=== PATIENT | female | born 1955 | race Caucasian/White ===

== ENCOUNTER 2017-07-30 12:37 | Emergency (ER) | payer MEDICARE ==
[2017-07-30 12:56] VITALS: BP 125/81
--- NOTE | 2017-07-30 13:10 | UC ---
Throat Pain/Nasal Basilio HPI - HPI Summary HPI Summary: 62 year old female with sinus pressure. COUGH, SINUS PRESSURE, SEVERE EAR PAIN ESPECIALLY WHEN BENDING DOWN. she does smoke. no fever. has exposure to illness. no CP. with sinus infection at home. [ End ] - History of Current Complaint Chief Complaint: UCGeneralIllness Stated Complaint: COUGH/SINUS Time Seen by Provider: 07/30/17 12:59 Hx Obtained From: Patient Onset/Duration: Gradual Onset Cough: Productive - Allergies/Home Medications Allergies/Adverse Reactions: Allergies Allergy/AdvReac Type Severity Reaction Status Date / Time Amoxicillin [From Augmentin] Allergy Rash Verified 07/30/17 12:57 Clavulanic Acid Allergy Rash Verified 07/30/17 12:57 [From Augmentin] Simvastatin Allergy Rash Verified 07/30/17 12:57 Sulfasalazine Allergy Rash Verified 07/30/17 12:57 PMH/Surg Hx/FS Hx/Imm Hx Previously Healthy: Yes Endocrine History: Dyslipidemia GI/ History: Gastroesophageal Reflux Psychological History: Anxiety, Depression - Surgical History Surgical History: Yes Surgery Procedure, Year, and Place: L3-4,L4-5 FUSION RODS SCREWS AND CAGE 2006 COURSE. RT CARPAL TUNNEL RELEASE 03/2007 [place]. LEFT CARPAL TUNNEL RELEASE 04/2007 [place]. APPENDECTOMY 01/2010 [place]. Back stimulator placement 2015 - Family History Known Family History: Positive: Hypertension, Diabetes - Social History Alcohol Use: None Substance Use Type: None Smoking Status (MU): Current Every Day Smoker Type: Cigarettes Amount Used/How Often: 1/2 -1 PPD Household Exposure Type: Cigarettes Review of Systems Constitutional: Fatigue ENT: Sore Throat, Ear Ache, Nasal Discharge, Sinus Congestion, Sinus Pain/ Tenderness Respiratory: Cough Is Patient Immunocompromised?: No All Other Systems Reviewed And Are Negative: Yes Physical Exam Triage Information Reviewed: Yes Appearance: Well-Appearing, No Pain Distress, Well-Nourished Vital Signs: Initial Vital Signs Temp 96.8 F 07/30/17 12:51 Pulse 100 07/30/17 12:51 Resp 20 07/30/17 12:51 BP 125/81 07/30/17 12:51 Pulse Ox 97 07/30/17 12:51 Vital Signs Reviewed: Yes Eye Exam: Normal ENT Exam: Normal ENT: Positive: Nasal congestion, Nasal drainage, TM dull, TM red - b/l, Sinus tenderness Dental Exam: Normal Neck exam: Normal Respiratory Exam: Normal Cardiovascular Exam: Normal Musculoskeletal Exam: Normal Neurological Exam: Normal Psychological Exam: Normal Skin Exam: Normal Throat Pain/Nasal Course/Dx - Course Assessment/Plan: advised to try to quit smoking - Differential Dx/Diagnosis Differential Diagnosis/HQI/PQRI: Pharyngitis, Sinusitis, Tonsillitis Provider Diagnoses: sinusitis Discharge - Discharge Plan Condition: Good Disposition: HOME Prescriptions: Doxycycline Hyclate [Morgidox [id number]] 100 mg PO BID #20 cap Patient Education Materials: Sinusitis (ED) Referrals: Jyotsna Burch MD [Primary Care Provider] - 4 Days
== END 2017-07-30 13:30 | disposition home or self-care (01) ==
LOC: UCCORT 12:37
DX: J32.9 Chronic sinusitis, unspecified (principal); Z72.0 Tobacco use
CPT/HCPCS: 99211; G0463

== ENCOUNTER 2018-06-02 14:14 | Emergency (ER) | payer MEDICARE ==
--- OUTSIDE RECORDS SUMMARY | 2018-06-02 14:31 | XMS REPORT ---
:1955 External Reference #:[id number] Author Organization [facility] Address [address], [address] [place] [address] Phone [phone] Care Team Providers Name Role Phone Jyotsna Burch MD Care Team Information Blade Filer Unavailable Jyotsna Burch MD Primary Care Physician Unavailable Payers Type Date Identification Numbers Payment Provider Subscriber Medicare Primary Policy Number: [id number] Medicare Noemi Dickey PayID: [id number] [address] [place] [address] [facility] Part B Effective: Policy Number: [employer] Noemi Noble 2009 [id number] [facility] [employer] Name: [id number] [address] PayID: [id number] [place] [address] Problems Date Description Provider Status Onset: 05/01/2014 Breast lump Elmer Dupont MD Active Onset: 09/25/2015 Knee pain Paul Santos M.D. Active Onset: 09/25/2015 Old tear of posterior horn of Paul Santos M.D. Active medial meniscus Onset: 10/03/2015 Enthesopathy of knee Paul Santos M.D. Active Onset: 02/07/2016 Localized, primary Paul Santos M.D. Active osteoarthritis Onset: 02/26/2017 Chondromalacia Paul Santos M.D. Active Onset: 02/26/2017 Complex tear of lat mensc, Paul Santos M.D. Active current injury, right knee, subs Onset: 06/03/2017 Synovial cyst of popliteal space Paul Santos M.D. Active Onset: 12/08/2017 Arthralgia of the ankle and/or Paul Santos M.D. Active foot Onset: 02/17/2018 Screening mammography Tee Quiroz Active M.D. Family History Date Family Member(s) Problem(s) Comments Father Diabetes Mother due to High Blood () - Frontal Lobe Pressure Dementia Mother Breast Cysts First Sister Breast Cysts First Sister due to Asthma () Second Sister Rheumatoid Arthritis Second Sister Fibromyalgia Social History Type Date Description Comments Marital Status Lives With Matias Diet Patient follows no dietary restrictions Occupation Disabled Occupation Retired Cigarette Use current cigarette smoker 1/2-1 PPD ETOH Use Denies alcohol use Smoking Patient is a current smoker, smokes every day Daily Caffeine Consumes on average 4 cups of regular coffee per day Exercise Type/Frequency Walks daily Allergies, Adverse Reactions, Alerts Date Description Reaction Status Severity Comments 02/01/2010 Augmentin hives, severe active has had PCN w/o itching/hives problems since then 02/01/2010 Simvastatin chest pain, feeling active funny, chest pain 10/25/2014 Sulfacetamide active rash knees down 09/25/2015 Tolterodine inactive Medications Medication Date Status Form Strength Qnty SIG Indications Ordering Provider Tylenol 8 Hour 03/08 Active Tablets ER 650mg 60tab 1 tab by Tom Arthritis Pain /2017 s mouth every Paul, 6 hours M.D. pain Aspirin Active Tablets 81mg 1 po qd Unknown / Calcium 600 Active Tablets 600mg 1 po bid Vitamin D Active Tablets 4000Unit 2 po qd / Fish Oil Active Capsules 1000mg 2 po qd Multivitamins Active Capsules 90cap 1 by mouth Unknown / s every day Pravastatin Active Tablets 40mg 30tab 1 po qd Unknown Sodium s Gabapentin Active Tablets 600mg 90tab 1 by mouth Unknown / s four times a day Ibuprofen Active Tablets 600mg 30tab 1 po q6h Unknown /0000 s prn pain use as first line pain control Methotrexate Active Tablets 1ml 1ML Sub Q Weekly Folic Acid Active Tablets 1mg 2 by mouth Unknown /0000 every day Escitalopram Active Tablets 20mg 1 by mouth Unknown Oxalate 0000 every day Cyclobenzaprine Active Tablets 10mg 1 by mouth Unknown HCL 0000 three times a day as needed muscle spasms Clonazepam Active Tablets 0.5mg 1 by mouth Unknown /0000 three times a day as needed Bupropion HCL ER Active Tablets ER 150mg 1 by mouth Unknown (SR) /0000 12HR bid Leucovorin Active Tablets 5mg take 2 Unknown Calcium 0000 tablets 12 hours after methotrexat e; once weekly Turmeric Active Capsules 500mg Unknown Curcumin Furosemide Active Tablets 20mg Villapian Jyotsna bello MD Ofloxacin 03/01 Hx Solution 0.3% 1unit 1 drop left H25.812 Lc (Ophthalmic) s eye diamond Whipple MD - times daily 04/28 for 10 days beginning three days before surgery Prednisolone 03/01 Hx Suspension 1% 5ml 1 drop left H25.812 Lc Acetate eye diamond Whipple MD - times daily 04/21 for weeks; please begin after surgery Ketorolac 03/01 Hx Solution 0.5% 5ml 1 drop H25.812 Lc Tromethamine /2017 operative MD Sarabjit - eye 4 times 04/21 daily for weeks; please begin 3 days prior to operation Ofloxacin 01/19 Hx Solution 0.3% 1unit 1 drop H25.813 Lc (Ophthalmic) s right eye MD Sarabjit - four times 02/17 daily for 10 days beginning three days prior to the operation Prednisolone 01/19 Hx Suspension 1% 5ml 1 drop H25.813 Lc, Acetate right eye MD Sarabjit - four times 03/01 daily four weeks; please begin after surgery Diclofenac 01/19 Hx Solution 0.1% 1unit 1 drop H25.813 Lc Sodium s right eye MD Sarabjit - four times 02/17 daily for weeks beginning three days before operation Hydrocodone-Acet 02/03 Hx Tablets 5-325mg 60tab 1-2 by Pompo, aminophen /2016 s mouth every Paul, - 4-6 hours M.D. 04/02 as needed for pain Venlafaxine HCL Hx Tablets ER 75mg 1 po qd Unknown /0000 24HR Lyrica Hx Capsules 50mg 1 po qd Unknown /0000 Iron 00/ Hx Tablets 325(65Fe) 1 po qd Unknown /0000 mg Hydrocodone-Acet Hx Tablets 5-500mg 1-2 po q4h Unknown aminophen /0000 prn Oxycodone HCL Hx Capsules 5mg Unknown / Risperidone Hx Tablets 1mg pm Unknown / Fentanyl Hx Patches 12mcg/HR every 72 Unknown /0000 72HR hrs - 11/05 Venlafaxine HCL Hx Caps ER 150mg Unknown ER /0000 24HR Stool Softener Hx Capsules 100mg 3 po qd Unknown /0000 - 09/25 Imipramine HCL Hx Tablets 25mg po qd Unknown /0000 Detrol LA Hx Caps ER 4mg 30cap 1 po qd Unknown / 24HR s Tylenol Extra Hx Tablets 500mg 2 tab po Unknown Strength /0000 prn - 03/08 Zyrtec Allergy Hx Capsules 10mg Unknown /0000 - 09/25 Opana Hx Tablets 5mg 3 by mouth Unknown /0000 every day - 09/25 Leucovorin Hx Tablets 5mg every week Unknown Calcium /0000 2 tabs - 09/25 Paroxetine HCL Hx Tablets 1 by mouth Unknown /0000 every day - 11/26 Abilify Hx Tablets 2mg 1 by mouth Unknown /0000 every day - 09/25 Pravachol Hx Tablets 40mg 1 by mouth Unknown /0000 every day - 09/25 Escitalopram Hx Tablets 10mg 1 by mouth Unknown Oxalate /0000 every day - 01/20 Escitalopram 00 Hx Tablets 10mg Take One Unknown Oxalate /0000 Tablet By - Mouth Every 20MG Leucovorin Hx Tablets 5mg Take Two Unknown Calcium /0000 Tablets By - Mouth Every 02/03 After Methotrexat e Omeprazole Hx Capsules DR 40mg Take One Unknown /0000 Capsule By - Mouth Two 04/21 Times Day Fluvirin 00/00 Hx Suspension Inject To Unknown /0000 Prevent Flu - 01/19 Hydrocortisone 00/ Hx Cream 1% Apply To Unknown /0000 Affected - Area S Two 02/03 Times A Day For 10 Days Hydroxyzine HCL Hx Tablets 25mg Take 1 2 Unknown /0000 Tablets By - Mouth Three 02/03 Times A Day as Needed For Anxiety Symp Azithromycin Hx Tablets 250mg Take Two Unknown /0000 Tablets By - Mouth AT 02/03 Once On First Day Then Take One Daily Docqlace Hx Capsules 100mg Take One Unknown /0000 Capsule By - Mouth Twice 02/03 A Day Needed For Constipatio n Omeprazole Hx Capsules DR 20mg Take One Unknown /0000 Capsule By - Mouth Every Paroxetine HCL Hx Tablets 10mg Take 2 Unknown /0000 Tablets By - Mouth Once 02/03 Daily One Week Then 1 Tablet Daily F Cephalexin Hx Capsules 500mg Take One Unknown /0000 Capsule By - Mouth Every 02/03 6 Hours Dexamethasone Hx Tablets 1mg Take One Unknown /0000 Tablet By - Mouth Every 02/03 12 Hours With Food Until Gone Ondansetron HCL Hx Tablets 4mg Take One Unknown /0000 Tablet By - Mouth Every 02/03 6 Hours Needed For Nausea And Vomiti Oxycodone-Acetam 00 Hx Tablets 5-325mg Take One To Unknown inophen /0000 Two Tablets - By Mouth 02/03 Every To 6 Hours as Needed For Pain Paroxetine HCL 00/ Hx Tablets 30mg Take One Unknown /0000 Tablet By - Mouth Every 02/03 Morning Depression Hydrocodone-Acet Hx Tablets 5-325mg Take One Unknown aminophen /0000 Tablet By - Mouth Every 02/03 4 To Hours as Needed For Pain Max Day Bupropion HCL ER 00/ Hx Tablets ER 150mg Take One Unknown (XL) /0000 24HR Tablet By - Mouth Every Vitamin D 00/ Hx Capsules [id number] Take One Unknown (Ergocalciferol) /0000 Capsule By - Mouth Every Ranitidine 150 00 Hx Tablets 150mg 1 by mouth Unknown Maximum Strength /0000 bid - 12/08 Sulfamethoxazole 00 Hx Tablets 800-160mg Dill, /Trimethoprim DS /0000 MD Rosy - 04/21 Medications Administered in Office Medication Date Status Form Strength Qnty SIG Indications Ordering Provider Euflexxa 2mL Administered Injection Pompo, prefilled 018 Bessie Miller syringe Euflexxa 2mL Administered Injection Lassiter, prefilled 018 Jane S., syringe RPAC Euflexxa 2mL Administered Injection Pompo, prefilled 018 Bessie Miller syringe Depomedrol 80 Administered Injection Lassiter, mg 017 Jane S., RPAC Synvisc/Synvis Administered Injection Pompo, c-One 017 Bessie Miller Vital Signs Date Vital Result Comment 04/28/2018 BP Systolic Sitting Right Arm 99 mmHg BP Diastolic Sitting Right Arm 61 mmHg Body Temperature 97.6 F Heart Rate 94 /min Respiratory Rate 17 /min Height 64.5 inches 5'4.50" Weight 284.00 lb BMI (Body Mass Index) 48.0 kg/m2 BSA (Body Surface Area) 2.28 m2 [place] body weight in kilograms 56 O2 % BldC Oximetry 95 % 04/21/2018 BP Systolic 129 mmHg BP Diastolic 85 mmHg Body Temperature 96.1 F Heart Rate 98 /min Height 64.5 inches 5'4.50" Weight 280.00 lb BMI (Body Mass Index) 47.3 kg/m2 BSA (Body Surface Area) 2.27 m2 [place] body weight in kilograms 56 O2 % BldC Oximetry 95 % Pain Level 10 03/08/2018 BP Systolic 121 mmHg BP Diastolic 84 mmHg Heart Rate 99 /min Weight 291.50 lb O2 % BldC Oximetry 91 % 02/17/2018 BP Systolic 138 mmHg BP Diastolic 88 mmHg Heart Rate 97 /min Respiratory Rate 18 /min Height 64.5 inches 5'4.50" Weight 292.00 lb BMI (Body Mass Index) 49.3 kg/m2 BSA (Body Surface Area) 2.31 m2 [place] body weight in kilograms 56 O2 % BldC Oximetry 94 % 02/02/2018 BP Systolic Sitting Right Arm 131 mmHg BP Diastolic Sitting Right Arm 74 mmHg Body Temperature 96.4 F Heart Rate 100 /min Respiratory Rate 19 /min Height 64.5 inches 5'4.50" Weight 293.00 lb BMI (Body Mass Index) 49.5 kg/m2 BSA (Body Surface Area) 2.31 m2 [place] body weight in kilograms 56 O2 % BldC Oximetry 96 % 01/26/2018 BP Systolic Sitting Left Arm 130 mmHg BP Diastolic Sitting Left Arm 87 mmHg Body Temperature 97.1 F Heart Rate 91 /min Respiratory Rate 17 /min Height 64.5 inches 5'4.50" Weight 292.00 lb BMI (Body Mass Index) 49.3 kg/m2 BSA (Body Surface Area) 2.31 m2 [place] body weight in kilograms 56 O2 % BldC Oximetry 95 % 01/19/2018 BP Systolic Sitting Right Arm 117 mmHg BP Diastolic Sitting Right Arm 72 mmHg Body Temperature 97.7 F Heart Rate 106 /min Respiratory Rate 17 /min Height 64.5 inches 5'4.50" Weight 293.00 lb BMI (Body Mass Index) 49.5 kg/m2 BSA (Body Surface Area) 2.31 m2 [place] body weight in kilograms 56 O2 % BldC Oximetry 95 % 12/08/2017 BP Systolic 153 mmHg BP Diastolic 90 mmHg Body Temperature 97.1 F Heart Rate 108 /min Respiratory Rate 18 /min Height 64.5 inches 5'4.50" Weight 299.00 lb BMI (Body Mass Index) 50.5 kg/m2 BSA (Body Surface Area) 2.33 m2 [place] body weight in kilograms 56 Pain Level 6 06/15/2017 BP Systolic 139 mmHg BP Diastolic 83 mmHg Heart Rate 119 /min Height 64 inches 5'4" Weight 284.12 lb BMI (Body Mass Index) 48.8 kg/m2 BSA (Body Surface Area) 2.27 m2 [place] body weight in kilograms 54 02/26/2017 BP Systolic Sitting Right Arm 132 mmHg BP Diastolic Sitting Right Arm 84 mmHg Heart Rate 90 /min Height 64 inches 5'4" Weight 275.00 lb BMI (Body Mass Index) 47.2 kg/m2 BSA (Body Surface Area) 2.24 m2 [place] body weight in kilograms 54 02/03/2017 BP Systolic Sitting Right Arm 110 mmHg BP Diastolic Sitting Right Arm 77 mmHg Heart Rate 89 /min Height 64 inches 5'4" Weight 276.00 lb BMI (Body Mass Index) 47.4 kg/m2 BSA (Body Surface Area) 2.24 m2 [place] body weight in kilograms 54 11/06/2015 Weight 218.00 lb 10/03/2015 Weight 229.00 lb 09/25/2015 BP Systolic 110 mmHg BP Diastolic 68 mmHg Heart Rate 74 /min Height 65 inches 5'5" Weight 231.00 lb BMI (Body Mass Index) 38.4 kg/m2 BSA (Body Surface Area) 2.10 m2 O2 % BldC Oximetry 98 % 10/25/2014 BP Systolic Sitting Right Arm 112 mmHg BP Diastolic Sitting Right Arm 73 mmHg Heart Rate 93 /min Respiratory Rate 20 /min Height 65 inches 5'5" Weight 223.00 lb BMI (Body Mass Index) 37.1 kg/m2 BSA (Body Surface Area) 2.07 m2 05/01/2014 BP Systolic Sitting Left Arm 123 mmHg BP Diastolic Sitting Left Arm 87 mmHg Heart Rate 88 /min Respiratory Rate 18 /min Height 65 inches 5'5" Weight 217.00 lb BMI (Body Mass Index) 36.1 kg/m2 BSA (Body Surface Area) 2.05 m2 01/18/2014 BP Systolic Sitting Right Arm 102 mmHg BP Diastolic Sitting Right Arm 68 mmHg Heart Rate 88 /min Respiratory Rate 18 /min Height 66 inches 5'6" Weight 221.00 lb BMI (Body Mass Index) 35.7 kg/m2 BSA (Body Surface Area) 2.09 m2 02/25/2010 Heart Rate 80 /min Respiratory Rate 16 /min Weight 204.00 lb 02/18/2010 Heart Rate 80 /min Respiratory Rate 18 /min Height 67 inches 5'7" Weight 199.00 lb BMI (Body Mass Index) 31.2 kg/m2 Last Menstrual Period [id number] 02/26/2007 Height 65 inches 5'5" Weight 214.00 lb Results Test Date Test Result H/L Range Note Xray 01/10/2016 Mammography, b9 Bilateral Xray 04/24/2015 Ultrasound, Breast - birads 3 6 mo f/u Left Xray 10/17/2014 Ultrasound, Breast - BIRADS 36mo left Left Fluid Culture W/ 01/30/2010 Gram Stain See Note 1 Gram Stain Fluid Culture See Note 2 Anaerobic Culture W/ GR Stain 01/30/2010 Gram Stain; Anaerobic See Note 3 Specimen Anaerobic Culture See Note 4 Laboratory test finding 01/30/2010 Appendix Inflammation See Note 5 1 GRAM STAIN ! MODERATE WHITE BLOOD CELLS ! NO ORGANISMS SEEN 2 NO GROWTH: FINAL REPORT 3 GRAM STAIN ! MODERATE WHITE BLOOD CELLS ! NO ORGANISMS SEEN 4 NO ANAEROBES ISOLATED 5 OPERATION/PROCEDURE Appendectomy DIAGNOSIS: "APPPENDIX": ACUTE APPENDICITIS, WITH SEROSITIS. WYS/maren 1218 GROSS The specimen is received in a single container additionally labeled "APPENDIX ". This contains a grossly recognizable 5.7 cm. long vermiform appendix with a diameter of 0.8 cm. There is along its full length and bread and butter-like exudate. Mesoappendiceal adipose tissue extends up to 2.3 cm. away from the body of the appendix. Serial sectioning through the appendix reveal the presence of a fecalith, but no suspicious mass, nor evidence of perforation. Front End Application Developer sections are submitted within a single cassette. WS/maren MICROSCOPIC Sections reveal sheets of luminal neutrophils eroding into the wall of the appendix, without evidence of perforation. Lymphoid follicles are hypertrophied. The serosal vessels are congested and have a fibrinopurulent exudate. PRE OPERATIVE DIAGNOSIS Acute appendectomy REVIEW CODE CODE: I RONALDO Prado MD 02/01/10 Procedures Date CPT Code Description Status Comment 04/22/2018 54392 Radiology, Distal Femur--Knee 1 Completed Or 2 Views 04/21/2018 54453 Radiology, Distal Femur--Knee 1 Completed Or 2 Views 03/17/2018 27662 Extracapsular Cataract Completed Extraction W/Intraocular Lens 02/02/2018 19242 Asp./Injection major joint Completed 01/27/2018 26178 Extracapsular Cataract Completed Extraction W/Intraocular Lens 01/26/2018 Asp./Injection major joint Completed 01/19/2018 26128 Ophthalmic Biometry By Partial Completed Coherence Interferometry W/Intra 01/19/2018 Asp./Injection major joint Completed 12/15/2017 07981 Eye Exam New Patient Completed Comprehensive 12/08/2017 Asp./Injection major joint Completed 12/08/2017 93283 Radiology, Ankle Complete Completed 10/27/2017 67798 Nipple exploration, with/wo Completed excison of a lactiferous/papilloma dt 02/13/2017 47617 Arthroscopy w/meniscectomy Completed including meniscal shaving 02/05/2017 Mammogram Completed 01/12/201793621 Asp./Injection major joint Completed 11/26/2016 05649 Radiology, Knee 3 Views Completed 11/26/2016 63587 Radiology, Knee 3 Views Completed 02/07/201676832 Asp./Injection major joint Completed 02/06/201629883 Asp./Injection major joint Completed 02/06/2016 Asp./Injection major joint Completed 10/03/201529546 Asp./Injection major joint Completed 09/25/2015 95124 Radiology, Knee 3 Views Completed 03/05/2015 16171 Echocardiogram Complete Completed 10/17/2014 Mammogram Completed Document: 10/17/14 - Breast Sonogram - Left Document: 10/17/14 - Digital Mammo Diag Left 04/17/2014 Mammogram Completed 05/03/2013 Mammogram Completed 01/10/2011 62391 Conscious Sedation For Completed Colonsocopy 01/08/2011 81873 EKG Interpretation And Report Completed Only 01/30/2010 34757 Appendectomy Completed 08/10/2008 Bone Mineral Density Test Completed 08/10/2008 Mammogram Completed 01/25/2008 44332 Stress Test Interpre And Report Completed Only 01/25/2008 45245 Stress Test Physician Super Completed Only 04/19/2007 80853 Neuroplasty median nerve at Completed carpal tunnel 03/22/2007 11685 Neuroplasty median nerve at Completed carpal tunnel Encounters Type Date Location Provider CPT E/M Dx Office Visit 04/28/2018 [place] [address] M17.11 10:15a Office Visit 04/21/2018 [place] [address] M17.11 11:00a Office Visit 03/08/2018 Orthopaedic Office Paul Santos M.D. 92193 M25.561 3:30p Office Visit 02/17/2018 Surgical Office Tee Quiroz 97851 Z12.31 3:30p Bessie Jamison Office Visit 01/19/2018 Orthopaedic Office Paul Santos M.D. 46532 M17.11 9:00a Office Visit 12/08/2017 Orthopaedic Office Paul Santos M.D. 57761 M17.11 8:30a Office Visit 10/07/2017 Surgical Office Tee Qiuroz 47080 C44.501 3:30p Bessie Jamison N64.52 Office Visit 09/23/2017 11:15a Surgical Office Tee Quiroz 62175 N64.52 Bessie Jamison N63.20 R21 Office Visit 08/13/2017 10:30a Orthopaedic Office Paul Santos M.D. 46318 M71.21 Office Visit 06/15/2017 1:15p Orthopaedic Office Paul Santos M.D. 49307 M71.21 Office Visit 06/03/2017 2:00p Orthopaedic Office Paul Santos M.D. 03819 M71.21 Office Visit 02/11/2017 1:15p Surgical Office Gabriella 06908 Z12.31 Tee Jamison M.D. Office Visit 01/20/2017 10:45a Orthopaedic Office Paul Santos M.D. 94424 M23.221 Office Visit 11/26/2016 3:00p Orthopaedic Office Paul Santos M.D. 13541 M17.11 M17.12 Office Visit 02/06/2016 10:30a Orthopaedic Office Paul Santos M.D. 22428 M17.11 Office Visit 01/28/2016 9:45a Surgical Office Gabriella 66569 N63 Tee Jamison M.D. Office Visit 01/10/2016 3:00p [place] [address] N63 Office Visit 12/10/2015 3:00p [place] [address] N63 Office Visit 11/06/2015 10:30a Orthopaedic Office Paul Santos M.D. 02061 M70.51 Office Visit 10/03/2015 9:30a Orthopaedic Office Paul Santos M.D. 77399 M70.51 Office Visit 09/25/2015 10:00a Orthopaedic Office Paul Santos M.D. 67510 M25.561 M23.221 Office Visit 05/02/2015 2:00p [place] [address] N63 Office Visit 10/25/2014 1:30p [place] [address] 611.72 Office Visit 05/01/2014 10:00a [place] [address] 611.72 Office Visit 04/05/2007 9:45a Operating Room Ori Lewis M.D. 66672 350.2 Office Visit 02/23/2007 2:15p Operating Room Ori Lewis M.D. 07300 350.2 Plan of Care Future Appointment(s):04/25/2019 9:30 am - Sarabjit Platt MD at [email or web address]/ 19/2018 - Ruben Schreiber, MDM17.11 Unilateral primary osteoarthritis, right kneeFollow up:Schedule U flexes series 6 months from the last viscus supplementation series. Patient will recheckto his that she would like to consider arthroplasty in the interim.
--- OUTSIDE RECORDS SUMMARY | 2018-06-02 14:31 | XMS REPORT | Continuity of Care Document ---
:1955 Author Organization [facility] Address [address], [place] [id number] Phone Care Team Providers Name Role Phone Lolita OSEI, November Unavailable Unavailable Allergies, Adverse Reactions, Alerts Substance Reaction Status simvastatin Active POTASSIUM CLAVULANATE Active AMOXICILLIN TRIHYDRATE Active Medications Medication Instructions Dosage Effective Dates Status Comments (start - stop) methotrexate sodium 25 inject 0.8 milliliter - Active mg/mL injection by subcutaneously solution route every week BD Insulin Syringe 1 for use with - Active mL 25 gauge x 5/8" methotrexate leucovorin calcium 5 TAKE 2 TABLETS BY - Active mg tablet MOUTH EVERY WEEK 12 HOURS AFTER METHOTREXATE folic acid 1 mg tablet TAKE TWO TABLETS BY 2 MG - Active MOUTH EVERY DAY ranitidine 150 mg take 1 tablet by oral 150 MG - Active tablet route 2 times every day Fish Oil 1,000 mg take 1 by oral route - Active capsule 3 times every day Calcium 600 600 mg take 1 by Oral route 1 - Active (1,500 mg) tablet 2 times every day Stool Softener 100 mg take 1 capsule by 100 MG - Active capsule oral route 3 times every bedtime aspirin 81 mg take 1 tablet by oral 81 MG - Active tablet,delayed release route every evening pravastatin 40 mg take 1 tablet by oral 40 MG - Active tablet route every bedtime Lasix 20 mg tablet take 1 tablet by oral 20 MG - Active route every day diclofenac 0.1 % eye instill 1 drop by 1.00 drop - Active drops ophthalmic route 4 times every day into affected eye(s) beginning within 15 minutes after surgery prednisolone acetate 1 instill 1 drop by 1.00 drop - Active % eye drops,suspension ophthalmic route 2 times every day into affected eye(s) clonazepam 0.5 mg take 1 tablet by oral 0.5 MG - Active tablet route 3 times every day OTC SUPPLEMENTS turmeric - Active ibuprofen 600 mg take 1 tablet by oral 600 MG - Active tablet route 4 times every day with food gabapentin 600 mg take 1 tablet by oral 600 MG - Active tablet route 4 times every day bupropion HCl SR 150 take 1 tablet by oral 150 MG - Active mg tablet,12 hr route every day sustained-release omeprazole 40 mg take 1 capsule by 40 MG - Active capsule,delayed oral route every day release before a meal Lexapro 20 mg tablet take 1 tablet by oral 20 MG - Active route every day cyclobenzaprine 10 mg take 1 tablet by oral 10 MG - Active tablet route 3 times every day as needed Vitamin D3 2,000 unit take 2 by oral route 2 - Active capsule every day multivitamin tablet take 2 tablet by oral 2 tablet - Active route every bedtime with food Zyrtec 10 mg tablet take 1 tablet by oral 10 MG - Active route every day acetaminophen 500 mg take 2 tablet by oral 1000 MG - Active tablet route every 6 hours as needed Problems Condition Effective Dates Clinical Status Comments (start - stop) Unsp inflammatory spondylopathy, 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 textbook associate (current) drug therapy Unspecified inflammatory spondylopathy, 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 custodial drug therapy Edema Unspecified inflammatory spondylopathy, 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 custodial drug therapy Rash Polyarthritis Unspecified inflammatory spondylopathy, 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 custodial drug therapy Nonscarring hair loss, unspecified Unspecified inflammatory spondylopathy, 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 textbook associate drug therapy GERD without esophagitis Unspecified inflammatory spondylopathy, 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 custodial drug therapy Other specified disorders of parathyroid gland Unspecified inflammatory spondylopathy, 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 textbook associate drug therapy Unspecified inflammatory spondylopathy, 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 textbook associate drug therapy Osteoporosis Unspecified inflammatory spondylopathy, 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 specified disorders of parathyroid gland Other textbook associate drug therapy Osteoporosis Vitamin D deficiency GERD without esophagitis Chronic pharyngitis Unspecified inflammatory spondylopathy, 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 textbook associate drug therapy Chest pain on breathing Unspecified inflammatory spondylopathy, 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 The mapped diagnosis code was Unspecified inflammatory spondylopathy, 720.9, added by Taylor Freeman LPN, with responsible provider Larissa Mchugh PA-C. Onset date 03/27/2014; last addressed on 06/22/2014. Procedures Procedure Date OFFICE/OUTPATIENT VISIT, EST Results Test Name Date and Time Measure Units Reference Range Abnormal Flag Status Comments No information Advance Directives Directive Yes / No Effective Date File Name No information Encounters Encounter Practice Location Reason(s) Diagnoses Date Provider Providers Description For Visit Copied on Encounter OFFICE/OUTPA Arthritis Arthritis Spondyloarth Unsp [facility] VISIT, [facility] inflammatory PA-C November. Provider: ONEL Epstein (chief spondylopath [address] [facility], [facility] complaint) y, [facility] [address] [facility] sites in [place], [facility], [facility], [place], [place], textbook associate [place], [place], [place], (current) [id number], [place], [id number], drug therapy [place]. [id number]. [place] tel:[phone] tel:[phone] tel:[phone] [id number] [id number] [facility] Provider: Marcelino Tian MD, [address] [place], [place], [id number]. tel:[phone] Arthritis Arthritis Unspecified [facility] inflammatory PA-C November. Provider: Lucian Epstein spondylopath [address] [facility], [address] [facility] y, multiple [facility], [address] [facility] sites in [place], [facility], spineOther [place], [place], [place], custodial [place], [place], [place], drug [id number], [place], [id number], therapyEdema [place]. [id number]. [place] tel:[phone] tel: tel:[phone] [phone] ring Provider: Marcelino Tian MD, [address], [place], [id number]. tel:[phone] Arthritis Arthritis Unspecified [facility] inflammatory 3- PA-C November. Provider: Lucian Epstein spondylopath [address] [facility], [address] [facility] y, multiple [facility], [address] [facility] sites in [place], [facility], spineOther [place], [address], [place], custodial [place], [place], [place], drug [id number], [place], [id number], therapyRashP [place]. [id number]. [place] olyarthritis tel: tel: tel:[phone] [phone] ring Provider: Marcelino Tian MD, [address], [place], [id number]. tel:[phone] Arthritis Arthritis Unspecified [facility] inflammatory - PA-C November. Provider: Lucian Epstein spondylopath 7 [address] [facility], [address] [facility] y, multiple [facility] sites in [facility], [address] [place] [address], spineOther [place], [address] [place], textbook associate [place], [address], [place], drug [id number], [place], [id number], [place], [address]. [place] arring hair tel: tel: tel: loss, [phone] [phone] unspecified ring Provider: Marcelino Tian MD, [address], [place], [id number]. tel:[phone] Arthritis Arthritis Unspecified [facility] inflammatory PA-C November. Provider: Lucian Epstein spondylopath 7 [address] [facility], [address] [facility] y, multiple [facility] sites in [facility], [address] [place] [address], spineOther [place], [address] [place], custodial [place], [address], [place], drug [id number], [place], [id number], [place], [address]. [place] without tel: tel: tel: esophagitis [phone] [phone] ring Provider: Marcelino Tian MD, [address] [place], [place], [id number]. tel: [phone] Arthritis Arthritis Unspecified [facility] inflammatory 5-201 PA-C November. Provider: Lucian Epstein spondylopath 7 [address] [facility], [address] [facility] y, multiple [facility] sites in [facility], [address] [place] [address], spineOther [place], [address] [place], textbook associate [place], [address], [place], drug [id number], [place], [id number], [place], [address]. [place] specified tel: tel: tel: disorders of [phone] [phone] parathyroid ring gland Provider: Marcelino Tian MD, [address] [facility], [place], [place], [id number]. tel: [phone] Arthritis Arthritis Unspecified [facility] inflammatory 4-201 PA-C November. Provider: Lucian Epstein spondylopath 7 [address] [facility], [address] [facility] y, multiple [facility] sites in [place], [place], [address] [place], spineOther [place], [facility] [place], custodial [place], [place], [place], drug therapy [id number], [place], [id number], [place]. [place], [place] tel: [phone]. tel:[phone] tel:[phone] Arthritis Arthritis Unspecified [facility] inflammatory 0-201 PA-C November. Provider: Luican Epstein spondylopath 6 [address] [facility], [facility] [facility] y, multiple [facility] sites in [place], , [address] [place], spineOther [place], [address] [place], custodial [place], [address], [place], drug [id number], [place], [id number], [place], [address]. [place] porosis tel:+ tel:+ tel:+ [phone] [phone] ring Provider: Marcelino Tian MD, [address] [place], [place], [place], [id number]. tel:[phone] Arthritis Arthritis Unspecified [facility] inflammatory 9 PA-C November. Provider: Lucian Epstein spondylopath 6 [address] [facility], [address] [facility] y, multiple [facility] sites in [place], , [address] [place] [address], spineOther [place], [address] [place], specified [place], [address], [place], disorders of [id number], [place], [id number], [place], [address]. [place] glandOther tel:+ tel: tel: textbook associate [phone] [phone] drug ring therapyOsteo Provider: Abe griffiths D Asmita Burkett MD, [address] [facility] esophagitisC [place], hronic [place], pharyngitis [place], [id number]. tel: [phone] Arthritis Arthritis Unspecified [facility] inflammatory 2 PA-C November. Provider: Lucian Epstein spondylopath 6 [address] [facility], [address] [facility] y, multiple [facility] sites in [place], , [address] [place], [place] [address], spineOther [place], [address] [place], textbook associate [place], [address], [place], drug [id number], [place], [id number], [place], [address]. [place] pain on tel:[phone] tel:[phone] tel: breathing [phone] [phone] ring Provider: Marcelino Tian MD, [address] [facility], [place], [place], [id number]. tel:+ [phone] Arthritis Arthritis Unspecified [facility] inflammatory PA-C November. Provider: Lucian Epstein spondylopath 6 [address] [facility], [address] [facility] y, multiple [facility] sites in [place], [address] [place], spineOther [place], [facility] [place], textbook associate [place], [place], [place], drug [id number], [place], [id number], therapyOther [place], [place] specified tel: [phone]. tel: disorders of [phone] tel: [phone] parathyroid [phone] glandOsteopo rosis Arthritis Arthritis Other [facility] specified PA-C November. Lucian Epstein disorders of 5 [address] [facility], [facility] [facility] parathyroid [facility] glandFatigue [place], [place], [place], [place], [place], [place], [id number], [id number], [place]. [place] tel: tel:[phone] Arthritis Arthritis Unspecified [facility] inflammatory PA-C November. Provider: Lucian Epstein spondylopath 5 [address] [facility], [address] [facility] y, multiple [facility] sites in [place], [address] [place], spineOther [place], [facility] [place], custodial [place], [place], [place], drug [id number], [place], [id number], therapyFatig [place]. [place], [place] ueVitamin D tel: [phone]. tel: deficiencyAs [phone] tel:[phone] ymptomatic [id number] menopausal state Arthritis Arthritis [facility] PA-C November. Provider: Lucian Epstein 4 [address] [facility], [address] [facility] FIRST ASSISTANT MANAGER E, [facility], [place], [place], [place], [id number], [address], [id number], [place]. [place], tel:[phone] [place], tel:[phone] [id number]. [id number] tel:[phone] Arthritis Arthritis [facility] 6-201 [place]. Provider: [facility] [address] [facility], [address] [facility], [facility], [facility], [place], [place], [place], [id number], [address], [id number], [place]. [place], tel:[phone] [place], tel:[phone]. [id number] tel:[phone] Family History Family Member Diagnosis Age At Onset Family history of Diabetes mellitus Mother Hypertension Sister Blood disease Family history of Cancer Sister Sarcoidosis,Rheumatoid Arthrit Mother Osteoarthritis Sister Osteoarthritis Sister Hypertension Immunizations Vaccine Date Status Comments Pneumococcal conjugate PCV 13 administered Source: Other Provider Influenza, injectable, MDCK, administered Source: Other Provider Flucelvax Quad 2017-2019Y Influenza, injectable, administered Note: Invalid documented admin trivalent, split virus, 4 date was . ; years and older, Fluvirin Source: Other Provider [id number] Influenza, split virus, administered Note: approx ; Source: Other injectable, 3 years and older Provider Fluvirin [id number] Flu (split) (3 yrs or older) administered Source: New Immunization Record Never had Zoster administered Source: New Immunization Record pneumo (2 yrs or older) administered Source: Other Provider (PPV23) Payers Payer name Insurance type Covered republican ID Authorization(s) Medicare MB [id number] [employer] CI [id number] Social History Type Description Quantity Date Captured Comments Alcohol Use Details No Caffeine Use Details coffee 5 cups per day Tobacco Use Status Occasional cigarette smoker Smoking Status Current some day smoker Smoking Tobacco Use Cigarette: No Details Available Cigarette: No Details Available Details Sex Female Vital Signs Date / Height Weight BMI Pulse Blood Temperature Respiratory Body Head BMI Pulse Inhaled Time: Rate Pressure Rate Surface Circumference percentile Ox Ox Area 66.00 -2018 in 2:23 PM 282.00 120/78 -2018 lbs mm[Hg] 2:34 PM Chief Complaint And Reason For Visit Most recent encounter only, dated '05/13/2018 14:20'. Spondyloarthropathy (chief complaint). Description: The pain severity is 9/10. Patient is experiencing generalized morning stiffness for all day and infection. Patient denies having hair loss, diarrhea, fever, oral ulcers ( mouth sores), photosensitivity and pleuritic pain.The patient is currently taking Ibuprofen with no side effects and Methotrexate with no side effects. Reason For Referral Reason For Referral No information Plan Of Treatment Date Type Action Status Goal Tobacco cessation counseling completed Goal Tobacco cessation counseling completed Goal Tobacco cessation counseling completed Goal Tobacco cessation counseling completed Goal Tobacco cessation counseling completed Referral Ordered: ordered LILIANE THOMAS -Otolaryngology (related to Chronic pharyngitis) Referral Referred To: ordered LILIANE THOMAS [address] [facility] [address] [place], [phone] Ordered: Referrals: Otolaryngology. LILIANE THOMAS. Evaluate and treat Referral Ordered: ordered RIBS/CHEST X-RAY, 3 VIEWS Left Referral Ordered: ordered TEMI EUBANKS (related to Other specified disorders of parathyroid gland) Referral Referred To: ordered TEMI EUBANKS [address] [place] [address], [address] [phone] Ordered: Referrals: TEMI EUBANKS. Evaluate and treat Referral Ordered: ordered *DXA BONE DENSITY, AXIAL Referral Ordered: ordered *LUMBOSACRAL SPINE X-RAY, 4 VIEWS Referral Ordered: ordered *WRIST X-RAY, 2 VIEWS Right Referral Ordered: ordered *HIP X-RAY, COMPLETE, 2 VIEWS Right Referral Ordered: ordered *WRIST X-RAY, 2 VIEWS Left Referral Ordered: ordered *SACROILIAC JOINTS X-RAY, MORE THAN 3 VIEWS Referral Ordered: ordered *HIP X-RAY, COMPLETE, 2 VIEWS Left Appointment Noemi Dickey BOOKED History Of Present Illness Encounter Date Complaint History Of Present Illness Spondyloarthropathy The pain severity is 9/10. Patient is experiencing generalized morning stiffness for all day and infection. Patient denies having hair loss, diarrhea, fever, oral ulcers (mouth sores), photosensitivity and pleuritic pain.The patient is currently taking Ibuprofen with no side effects and Methotrexate with no side effects. Functional Status Date Functional Assessment No information Medications Administered Medication Instructions Dosage Effective Dates (start - stop) Status Comments No information Instructions Date Instruction Additional Information Reviewed importance of compliance/adherence to medications prescribed Risks/benefits of medications reviewed Discussed importance of holding DMARDs/ biologics if patient develops an infection and to notify the treating physician Please elveate legs frequently. Avoid salt intake. Use elastic knee high stockings as needed Reviewed importance of compliance/adherence to medications prescribed Risks/benefits of medications reviewed Diagnostic studies discussed/reviewed: biopsy Risks/benefits of medications reviewed Call if symptoms persist Reviewed importance of compliance/adherence to medications prescribed Discussed importance of holding DMARDs/ biologics if patient develops an infection and to notify the treating physician Reviewed importance of compliance/adherence to medications prescribed Risks/benefits of medications reviewed Discussed importance of holding DMARDs/ biologics if patient develops an infection and to notify the treating physician Call if symptoms persist Discussed importance of holding DMARDs/ biologics if patient develops an infection and to notify the treating physician Risks/benefits of medications reviewed Reviewed importance of compliance/adherence to medications prescribed Reviewed importance of compliance/adherence to medications prescribed Risks/benefits of medications reviewed Discussed importance of holding DMARDs/ biologics if patient develops an infection and to notify the treating physician follow-up with endocrinology Risks/benefits of medications reviewed Risks/benefits of medications reviewed Discussed importance of holding DMARDs/ biologics if patient develops an infection and to notify the treating physician Reviewed importance of compliance/adherence to medications prescribed Reviewed importance of compliance/adherence to medications prescribed Risks/benefits of medications reviewed Discussed importance of holding DMARDs/ biologics if patient develops an infection and to notify the treating physician Risks/benefits of medications reviewed Discussed importance of holding DMARDs/ biologics if patient develops an infection and to notify the treating physician Discussed / Reviewed Labs followup with endocrinology Diet: Instructed on appropriate calcium and vitamin D intake. Reviewed importance of compliance/adherence to medications prescribed Risks/benefits of medications reviewed Risks/benefits of medications reviewed Discussed importance of holding DMARDs/ biologics if patient develops an infection and to notify the treating physician Reviewed importance of compliance/adherence to medications prescribed Reviewed importance of compliance/adherence to medications prescribed Risks/benefits of medications reviewed Discussed importance of holding DMARDs/ biologics if patient develops an infection and to notify the treating physician Risks/benefits of medications reviewed Discussed importance of holding DMARDs/ biologics if patient develops an infection and to notify the treating physician Diet: Instructed on appropriate calcium and vitamin D intake. Reviewed importance of compliance/adherence to medications prescribed
[2018-06-02 15:29] VITALS: BP 112/70
--- NOTE | 2018-06-02 15:49 | UC ---
Throat Pain/Nasal Basilio HPI - HPI Summary HPI Summary: 62-year-old woman comes to clinic today with a chief complaint of right-sided sinus pressure and cough and wheezing. This all started almost a week ago. No fevers. No rash. Patient does have COPD and feels like her COPD's being exacerbated by the symptoms. No ear pain. - History of Current Complaint Chief Complaint: UCGeneralIllness Stated Complaint: SINUSES Time Seen by Provider: 06/02/18 15:27 Hx Last Menstrual Period: n/a Pain Intensity: 7 - Allergies/Home Medications Allergies/Adverse Reactions: Allergies Allergy/AdvReac Type Severity Reaction Status Date / Time amoxicillin AdvReac Rash Verified 06/02/18 15:26 clavulanic acid AdvReac Rash Verified 06/02/18 15:26 simvastatin AdvReac Rash Verified 06/02/18 15:26 sulfasalazine AdvReac Rash Verified 06/02/18 15:26 PMH/Surg Hx/FS Hx/Imm Hx Respiratory History: COPD GI/ History: Gastroesophageal Reflux - Surgical History Surgical History: Yes Surgery Procedure, Year, and Place: L3-4,L4-5 FUSION RODS SCREWS AND CAGE 2006 COURSE. RT CARPAL TUNNEL RELEASE 03/2007 [facility]. LEFT CARPAL TUNNEL RELEASE 04/2007 [facility]. APPENDECTOMY 01/2010 [facility]. Back stimulator placement 2015. bilateral cataract - Family History Known Family History: Positive: Hypertension, Diabetes - Social History Alcohol Use: None Substance Use Type: None Smoking Status (MU): Current Every Day Smoker Type: Cigarettes Amount Used/How Often: 3/4 - 1 PPD Household Exposure Type: Cigarettes Review of Systems Constitutional: Negative Skin: Negative Eyes: Negative ENT: Sinus Pain/Tenderness Respiratory: Cough, Other - see hpi Gastrointestinal: Negative Motor: Negative Neurovascular: Negative Musculoskeletal: Negative Neurological: Negative Psychological: Negative Is Patient Immunocompromised?: Yes All Other Systems Reviewed And Are Negative: Yes Physical Exam Triage Information Reviewed: Yes Appearance: No Pain Distress, Well-Nourished, Ill-Appearing - mild Vital Signs: Initial Vital Signs Temp 96.4 F 06/02/18 15:23 Pulse 90 06/02/18 15:23 Resp 17 06/02/18 15:23 BP 112/70 06/02/18 15:23 Pulse Ox 98 06/02/18 15:23 Vital Signs Reviewed: Yes Eye Exam: Normal Eyes: Positive: Conjunctiva Clear ENT: Positive: Pharynx normal, Nasal congestion, TMs normal Neck exam: Normal Neck: Positive: Supple Respiratory: Positive: Lungs clear, Normal breath sounds, No respiratory distress Cardiovascular: Positive: RRR Musculoskeletal Exam: Normal Musculoskeletal: Positive: Strength Intact, ROM Intact, Other: - Positive bilateral pedal edema Neurological Exam: Normal Neurological: Positive: Alert, Muscle Tone Normal Psychological Exam: Normal Psychological: Positive: Age Appropriate Behavior Skin Exam: Normal Throat Pain/Nasal Course/Dx - Course Course Of Treatment: Disposition being on methotrexate I will treat with antibiotics at this time. Plan is to follow-up with the primary care doctor recheck sooner if worse. - Differential Dx/Diagnosis Provider Diagnoses: bronchitis. sinus pressure Discharge - Sign-Out/Discharge Documenting (check all that apply): Patient Departure All imaging exams completed and their final reports reviewed: No Studies - Discharge Plan Condition: Stable Disposition: HOME Prescriptions: Azithromyxin RUDDY (NF) [Z-Ruddy (Zithromax) 250 mg tabs #6] 2 tab PO .TODAY, THEN 1 DAILY #6 tab Patient Education Materials: Acute Bronchitis (ED) Referrals: Jyotsna Burch MD [Primary Care Provider] - Additional Instructions: FOLLOW UP WITH YOUR DOCTOR IF NOT COMPLETELY IMPROVED. GET RECHECKED FOR ANY WORSENING OF YOUR CONDITION OR QUESTIONS OR CONCERNS. - Billing Disposition and Condition Condition: STABLE Disposition: Home
== END 2018-06-02 16:02 | disposition home or self-care (01) ==
LOC: UCCORT 14:14
DX: J40 Bronchitis, not specified as acute or chronic (principal); J44.9 Chronic obstructive pulmonary disease, unspecified; K21.9 Gastro-esophageal reflux disease without esophagitis; F17.210 Nicotine dependence, cigarettes, uncomplicated; Z88.1 Allergy status to other antibiotic agents; Z88.8 Allergy status to other drugs, medicaments and biological substances
CPT/HCPCS: 99212; G0463

== ENCOUNTER 2018-11-16 05:45 | Inpatient (IN) | payer MEDICARE ==
[~2018-11-16 05:45] MED LIST: Buffered Lidocaine 1% SYRIN* 1 ML/SYRINGE INTRADERM ONE
[2018-11-16] MEDS ORDERED: Famotidine IV* 10 MG/ML 2 ML (20 mg) IV ONE (06:00)
[2018-11-16] MEDS ORDERED: Dexamethasone IV* 4 MG/ML 1 ML (4 MG) IV SLOW PU ONE (06:00)
[2018-11-16] MEDS ORDERED: Lactated Ringers 1000 ML Bag* 1,000 ML IV SCH (06:00)
[2018-11-16] MEDS ORDERED: Scopolamine 1.5 mg* PATCH TRANSDERM ONE (06:00)
[2018-11-16] MEDS ORDERED: Heparin VIAL(*) 5000 UNITS/ML VIAL (FIVE THOUSAND) ONE (06:05)
[2018-11-16] MEDS ORDERED: Scopolamine 1.5 mg* PATCH ONE (06:05)
[2018-11-16] MEDS ORDERED: Dexamethasone IV* 4 MG/ML 1 ML (4 MG) ONE (06:05)
[2018-11-16] MEDS ORDERED: Clindamycin 900 MG IVPREMIX(* 900 MG/50 ML SDV IV ONE (06:06)
[2018-11-16] MEDS ORDERED: Ciprofloxacin 400MG IVPREMIX(* 400 MG/200 ML BAG ONE (06:06)
[2018-11-16] MEDS ORDERED: Famotidine IV* 10 MG/ML 2 ML (20 mg) ONE (06:06)
[2018-11-16] MEDS ORDERED: fentaNYL* 50 MCG/ML 5 ML VIAL (250 MCG VIAL) ONE (07:02)
[2018-11-16] MEDS ORDERED: Midazolam* 1 MG/ML 5 ML VIAL (5 MG) ONE (07:02)
[2018-11-16] MEDS ORDERED: Lidocaine 2% PF * 5 ML VIAL ONE (07:03)
[2018-11-16] MEDS ORDERED: Propofol* 10 MG/ML 20 ML BTL ONE (07:03)
[2018-11-16] MEDS ORDERED: Rocuronium* 10 MG/ML VIAL ONE (07:03)
[2018-11-16] MEDS ORDERED: Bupivacaine 0.25% EPI 200,000* 30 ML SDV ONE (07:18)
[2018-11-16] MEDS ORDERED: Bupivacaine 0.25% W/EPI* 10 ML SDV ONE (07:18)
[2018-11-16] MEDS ORDERED: Methylene Blue 0.5 %* 50 MG/10 ML AMP IV ONE (07:18)
[2018-11-16] MEDS ORDERED: Phenylephrine 40 MCG/ML SYRINGE ONE (07:48)
[2018-11-16] MEDS ORDERED: EPHEDrine (Pressors)* 50 MG/ML VIAL ONE (08:12)
[2018-11-16] MEDS ORDERED: Phenylephrine 10 MG/ML VIAL* 1 ML VIAL ONE (08:16)
[2018-11-16] MEDS ORDERED: Ondansetron INJ* 2 MG/ML VIAL ONE (08:58)
[2018-11-16] MEDS ORDERED: Ketorolac INJ* 30 MG/ML 1 ML VIAL ONE (09:06)
[2018-11-16] MEDS ORDERED: Glycopyrrolate IV* 0.2 MG/ML 1 ML VIAL ONE ×2 (09:07→09:08)
[2018-11-16] MEDS ORDERED: Neostigmine Methylsulfate* 3 MG/3 ML SYRINGE ONE (09:08)
--- NOTE | 2018-11-16 09:44 | OP ---
Operative Report - Blank - Operative Report Date of Operation: 11/16/18 Note: Brief Operative Note Preop Dx: Morbid obesity Postop Dx: Same Procedure: Laparoscopic quin-en-y gastric bipass Anesthesia: GET and local Surgeon: Amie Cemetery Laborer: MARKEL Shoemaker; NARESH Thomas Fluids: 1300 ml LR EBL: <50 ml Specimen: None Drains: None Findings: dictated
[2018-11-16] MEDS ORDERED: Acetaminophen ADULT LIQ* 650 MG/20.3 ML UDC PO PRN (09:45)
[2018-11-16] MEDS ORDERED: diPHENhydraMINE IV* 50 MG/ML 1 ml VIAL (BENADRYL) SLOW PUSH PRN (09:45)
[2018-11-16] MEDS ORDERED: Ondansetron INJ* 2 MG/ML VIAL IV PRN (09:45)
[2018-11-16] MEDS ORDERED: HYDROmorphone INJ1* 1 MG/ML SYRINGE IV SLOW PU PRN ×2 (09:50)
[2018-11-16] MEDS ORDERED: Morphine 4 MG/ML VIAL (1 ml) 4 MG/ML VIAL IV PRN (10:11)
[2018-11-16] MEDS ORDERED: Naloxone* 0.4 MG/ML 1 ML VIAL IV PRN (10:11)
[2018-11-16] MEDS ORDERED: fentaNYL* 50 MCG/ML 2 ML VIAL (100 MCG VIAL) IV PRN (10:11)
[2018-11-16] MEDS ORDERED: Acetaminophen IV 1GM/100ML * 1,000 MG/100 ML VIAL IVPB ONE (10:11)
[2018-11-16] MEDS ORDERED: fentaNYL* 50 MCG/ML 2 ML VIAL (100 MCG VIAL) ONE (10:28)
[2018-11-16] MEDS ORDERED: Acetaminophen IV 1GM/100ML * 100 ML ONE (10:28)
[2018-11-16] MEDS: Lactated Ringers 1000 ML Bag* 1,000 ML IV SCH ×2 (11:05→18:34)
[2018-11-16] MEDS: Heparin VIAL(*) 5000 UNITS/ML VIAL (FIVE THOUSAND) SUBCUT SCH ×2 (14:57→21:34)
[2018-11-16] MEDS: Ketorolac INJ* 30 MG/ML 1 ML VIAL IV PRN (18:33)
[2018-11-16] MEDS: Famotidine IV* 10 MG/ML 2 ML (20 mg) IV SLOW PU SCH (21:32)
--- NOTE | 2018-11-16 22:47 | OP ---
CC: Jyotsna Burch MD, [place], [place]; [facility] * DATE OF OPERATION: 11/16/18 - ROOM #351 DATE OF : 53 SURGEON: Tato Holloway MD. TECHNICAL SALES SUPPORT SPECIALIST: MARKEL Chiang. ANESTHESIOLOGIST: Dr. Pelaez. ANESTHESIA: General endotracheal. PRE-OP DIAGNOSIS: Morbid obesity. POST-OP DIAGNOSIS: Morbid obesity. OPERATIVE PROCEDURE: Laparoscopic Tomi-en-Y gastric bypass. ESTIMATED BLOOD LOSS: Less than 50 mL. IV FLUIDS: 1.3 L crystalloid. SPECIMENS: None. DRAINS: None. COMPLICATIONS: None. COUNTS: Instruments, needle and sponge counts were correct. DESCRIPTION OF PROCEDURE: The patient was brought to the operating room and placed on the table supine. Sequential compression devices were placed on both lower extremities. General anesthesia was administered. She was positioned and padded appropriately and then prepped and draped in the usual sterile fashion. She received appropriate intravenous antibiotics. Time-out was performed. Local anesthetic was infiltrated into the skin and soft tissue prior to making each incision. Entry to the abdomen was through a left upper quadrant incision accommodating a 12 mm optical trocar. After accessing the peritoneal cavity, carbon dioxide was insufflated to a pressure of 15 mmHg. Under direct visualization, 12 mm bladeless trocars were placed in the supraumbilical midline and right upper quadrant. Trocars of 5 mm were placed in the right upper quadrant medially and left upper quadrant laterally. A Aleida liver retractor was placed percutaneously in the subxiphoid position and used to elevate the left lobe of the liver. Gastric anatomy appeared normal, although there was some looseness to the hiatus noted. The dissection proceeded with mobilization of the gastroesophageal junction, freeing this from the left daphney of the diaphragm and then perigastric dissection was undertaken on the lesser curvature, entering the lesser sac and with several firings of the EndoGIA stapler, the gastric pouch was created. There was noted to be a posterior- based hiatal hernia and this was fully reduced during the division of the gastric pouch. Subsequently, the transverse colon and omentum were retracted cephalad and the ligament of Treitz was identified. The jejunum was then measured out approximately 40 to 50 cm and then this loop was brought up to the gastric pouch and sutured with 2-0 silk to the lateral left staple line. A gastrojejunal anastomosis was then next performed using the EndoGIA stapler with a 30 mm mtz cartridge. A common enterotomy was run close with 3-0 PDS over a 34- Ghanaian gastric lavage tube. The jejunal loop was divided to the left of the anastomosis to complete the Tomi limb. The anastomosis was then tested with methylene blue dye solution instilled through the orogastric tube and no leak was identified. The Tomi limb was then measured out 75 cm and at this point, a functional end-to-side jejunojejunostomy was created with a 16 mm EndoGIA stapler with a mtz cartridge. The common enterotomy was closed running at to and fro with a 3-0 PDS. Lastly, the mesenteric defect was closed using a series of interrupted 3-0 silks. After assuring hemostasis and proper orientation of the bowel, the Aleida liver retractor and ports were removed. The carbon dioxide was released from the abdomen. The incisions were all closed using 4-0 Monocryl in subcuticular fashion. Steri-Strips were applied. The patient tolerated this procedure well, was extubated uneventfully, and transferred to the recovery room in stable condition. [id number]/[facility] #: [id number] MTDCarlos
[2018-11-17] MEDS: Lactated Ringers 1000 ML Bag* 1,000 ML IV SCH ×2 (01:26→08:07)
[2018-11-17] MEDS: Ketorolac INJ* 30 MG/ML 1 ML VIAL IV PRN ×2 (06:17→13:30)
[2018-11-17] MEDS: Heparin VIAL(*) 5000 UNITS/ML VIAL (FIVE THOUSAND) SUBCUT SCH ×3 (06:18→22:09)
[2018-11-17] MEDS: Famotidine IV* 10 MG/ML 2 ML (20 mg) IV SLOW PU SCH ×2 (08:57→20:40)
--- NOTE | 2018-11-17 10:18 | PN ---
Progress Note - Progress Note Date of Service: 11/17/18 SOAP: Subjective:POD#1 s/p laparoscopic gastric bypass good pain control,no nausea,ambulating,using inspiron,voiding ok [] Objective: Vital Signs Temp 98.4 F 11/17/18 07:17 Pulse 73 11/17/18 07:17 Resp 18 11/17/18 07:38 BP 111/56 11/17/18 07:17 Pulse Ox 93 11/17/18 07:38 Intake & Output 11/16/18 11/17/18 11/17/18 18:59 06:59 18:59 Intake Total 2634 980 Output Total 300 500 Balance 2334 480 Intake: IV Fluids 2634 980 CIPROFLOXACIN 400 MG 250 LR 2384 980 Oral 0 0 Output: Urine 300 500 Other: # Bowel Movements 0 Estimated Blood Loss <25 Comment lungs:clear bilat;heart:RRR,no murmur;abd:hypoactive bs;soft;minimal tenderness; incisions intact with dressings,no erythema or drainage;ext:nontender calves [] Assessment:doing wel [] Plan:start raul clears ambulate inspiron []
[2018-11-17] MEDS: D5W 1/2 NS KCl 20 Meq 1000 ML* 1,000 ML IV SCH ×2 (10:57→18:52)
[2018-11-17] MEDS: HYDROcodone/ACET. 7.5/325 LIQ* 15 ML UDC PO PRN (20:39)
[2018-11-18] MEDS: D5W 1/2 NS KCl 20 Meq 1000 ML* 1,000 ML IV SCH (02:43)
[2018-11-18] MEDS: Heparin VIAL(*) 5000 UNITS/ML VIAL (FIVE THOUSAND) SUBCUT SCH (06:05)
[2018-11-18] MEDS: Famotidine IV* 10 MG/ML 2 ML (20 mg) IV SLOW PU SCH (08:33)
[2018-11-18] MEDS: HYDROcodone/ACET. 7.5/325 LIQ* 15 ML UDC PO PRN (08:38)
[2018-11-18 09:58] VITALS: BP 101/66
--- NOTE | 2018-11-18 12:36 | DS ---
AMENDED REPORT NOW INCLUDES DESIGNATED COSIGNER [facility]; Dr. Jyotsna Burch * DATE OF ADMISSION: 11/16/2018. DATE OF DISCHARGE: 11/18/2018. ATTENDING SURGEON: Dr. Tato Holloway * (MARKEL Chiang dictating). HOSPITAL COURSE: Please refer to admission history and physical and operative note for details. The patient was taken to the operating room on 11/16/2018 at which time she underwent laparoscopic Tomi-en-Y gastric bypass with Dr. Holloway. Surgery and postoperative course have been unremarkable with gradual progression in terms of diet (bariatric clear liquids) and pain control. She was seen and examined the morning of discharge by Dr. Holloway ( see separate progress note). She was deemed to meet discharge criteria. Instructions were reviewed regarding wound care, diet, and activity. She has a follow-up set up with the [facility] next week. She will resume her usual home medications. She is discharged to home in good condition. MARKEL CHIANG [id number]/[facility] #: [id number] MTDD
[2018-11-19] MEDS ORDERED: Scopolamine PATCH Remove* 1 NOTE MISC PATCH OFF ONE (06:00)
== END 2018-11-18 12:00 | disposition home or self-care (01) | DRG 621 ==
LOC: AA 05:45 → SSU 09:45
PROVIDERS: ADMIT Surgery; ATTEND Surgery
PROC: 0D164ZA Bypass Stomach to Jejunum, Percutaneous Endoscopic Approach (ICD-10-PCS; principal; 2018-11-16 07:30)
DX: E66.01 Morbid (severe) obesity due to excess calories (principal); K21.9 Gastro-esophageal reflux disease without esophagitis; G47.33 Obstructive sleep apnea (adult) (pediatric); K22.70 Barrett's esophagus without dysplasia; Z68.42 Body mass index [BMI] 45.0-49.9, adult; F41.9 Anxiety disorder, unspecified; F32.9 Major depressive disorder, single episode, unspecified; R20.2 Paresthesia of skin; E78.5 Hyperlipidemia, unspecified; M06.9 Rheumatoid arthritis, unspecified; M81.0 Age-related osteoporosis without current pathological fracture; F17.210 Nicotine dependence, cigarettes, uncomplicated; M76.9 Unspecified enthesopathy, lower limb, excluding foot; J44.9 Chronic obstructive pulmonary disease, unspecified; M17.11 Unilateral primary osteoarthritis, right knee; M23.200 Derangement of unspecified lateral meniscus due to old tear or injury, right knee; M23.203 Derangement of unspecified medial meniscus due to old tear or injury, right knee; M94.261 Chondromalacia, right knee; M79.7 Fibromyalgia; M85.80 Other specified disorders of bone density and structure, unspecified site; E78.00 Pure hypercholesterolemia, unspecified; Z83.3 Family history of diabetes mellitus; Z80.1 Family history of malignant neoplasm of trachea, bronchus and lung; Z80.0 Family history of malignant neoplasm of digestive organs; Z86.711 Personal history of pulmonary embolism; Z80.49 Family history of malignant neoplasm of other genital organs; Z82.61 Family history of arthritis; Z83.49 Family history of other endocrine, nutritional and metabolic diseases; Z81.8 Family history of other mental and behavioral disorders
CPT/HCPCS: 43644; A9270-GY; C1776; J0744; J1100; J1170; J1644; J1885; J2250; J2405; J2704; J2710; J3010

== ENCOUNTER 2019-05-20 20:24 | Emergency (ER) | payer MEDICARE ==
--- OUTSIDE RECORDS SUMMARY | 2019-05-20 20:32 | XMS REPORT | Continuity of Care Document ---
:1955 External Reference #:[id number] Author Name Sarabjit Platt MD Address [address] [place], [place] [address] [address] Care Team Providers Name Role Phone Jyotsna Burch MD - Family Care Team Information Seafood Preparer [phone] Medicine Tato Holloway MD - Surgery Care Team Information Seafood Preparer Problems Active Problems Provider Date Breast lump Elmer Dupont MD Onset: 05/01/2014 Knee pain Paul Santos M.D. Onset: 09/25/2015 Old tear of posterior horn of medial Paul Santos M.D. Onset: 09/25/2015 meniscus Enthesopathy of knee Paul Santos M.D. Onset: 10/03/2015 Localized, primary osteoarthritis Paul Santos M.D. Onset: 02/07/2016 Chondromalacia Paul Santos M.D. Onset: 02/26/2017 Complex tear of lateral meniscus, Paul Santos M.D. Onset: 02/26/2017 current injury, right knee, subsequent encounter Synovial cyst of popliteal space Paul Santos M.D. Onset: 06/03/2017 Arthralgia of the ankle and/or foot Paul Santos M.D. Onset: 12/08/2017 Screening mammography Tee Quiroz, Onset: 02/17/2018 [facility] Electrocardiogram abnormal Mikey Saleem M.D., Onset: 09/24/2018 [facility] Preoperative cardiovascular Mikey Saleem M.D., Onset: 09/24/2018 examination FACC Hyperlipidemia Mikey Saleem M.D., Onset: 09/24/2018 [facility] Social History Type Date Description Comments Sex Unknown Tobacco Use Start: Unknown Light tobacco smoker (10 or fewer cigarettes/day) ETOH Use Denies alcohol use Recreational Drug Use Denies Drug Use Tobacco Use Start: Unknown Light tobacco smoker (10 or fewer cigarettes/day) Smoking Status Reviewed: 04/25/19 Light tobacco smoker (10 or fewer cigarettes/day) Exercise Type/Frequency Walks daily Allergies, Adverse Reactions, Alerts Active Allergies Reaction Severity Comments Date Augmentin hives, severe has had PCN w/o problems 02/01/2010 itching/hives since then Simvastatin chest pain, feeling 02/01/2010 funny, chest pain Sulfacetamide rash knees down 10/25/2014 Inactive Allergies Tolterodine 09/25/2015 Medications Active Medications SIG Qnty Indications Ordering Date Provider Systane 2 drops both eyes Lc Sarabjit, 01/06/2019 0.4-0.3% every day prn MD Solution Omeprazole 1 by mouth bid 90caps Harper, 09/24/2018 40mg Mikey Mcallister M.D., Capsules [facility] Tylenol 8 Hour 1 tab by mouth 60tabs Paul Santos, 03/08/2018 Arthritis Pain every 6 hours pain M.D. 650mg Tablets ER Aspirin 1 po qd Unknown 81mg Tablets Pravastatin Sodium 1 po qd 30tabs Unknown 40mg Tablets Tramadol HCL 1 po qid Unknown 50mg Tablets Gabapentin 12 milliliters 4 Unknown 250mg/5ML times a day Solution Bupropion HCL sig 1 1/2 tablets Bordoni, 100mg bid prn TIFFANIE Varela Tablets Escitalopram Oxalate 1 by mouth every Unknown day 20mg Tablets Opurity sig 1 po qd Unknown Tablets Amitriptyline HCL 1 tablet 1 hours Unknown 50mg prior to bedtime Tablets Cetirizine HCL 1 by mouth every Unknown 10mg day Tablets Colace 1 by mouth daily Unknown 100mg Capsules and can take twice a day as needed Baclofen Take 1 2 1 Tablet Unknown 10mg Tablets By Mouth Two Times A Day as Needed For Spasm Flares Not Intended For Daily Use Medications Administered in Office Medication SIG Qnty Indications Ordering Provider Date Depomedrol 40mg/1cc Ruben Schreiber MD 12/20/2018 (methylprednisolone acetate) Injection Euflexxa 2mL prefilled syringe Paul Santos M.D. 02/02/2018 Injection Euflexxa 2mL prefilled syringe Jane Lassiter, 01/26/2018 Injection RPAC Euflexxa 2mL prefilled syringe Paul Santos M.D. 01/19/2018 Injection Methylprednisolone acetate Jane Lassiter, 01/12/2017 (Depomedrol) 80mg injection RPAC Injection Synvisc/Synvisc-One Paul Santos M.D. 12/17/2016 Injection Immunizations Description No Information Available Vital Signs Date Vital Result Comment 03/30/2019 1:23pm BP Systolic 96 mmHg BP Diastolic 67 mmHg Body Temperature 96.9 F Heart Rate 90 /min Height 63 inches 5'3" Weight 213.00 lb BMI (Body Mass Index) 37.7 kg/m2 BSA (Body Surface Area) 1.99 m2 [place] body weight in kilograms 52 kg O2 % BldC Oximetry 96 % 02/24/2019 3:50pm BP Systolic 104 mmHg BP Diastolic 76 mmHg Heart Rate 105 /min Height 64.5 inches 5'4.50" Weight 221.00 lb BMI (Body Mass Index) 37.3 kg/m2 BSA (Body Surface Area) 2.05 m2 [place] body weight in kilograms 56 kg O2 % BldC Oximetry 97 % Results Description No Information Available Procedures Date Code Description Status 04/25/2019 66820 Eye Exam Est Patient Comprehensive Completed 03/30/2019 60546 Radiology, Knee 3 Views Completed 03/30/2019 61120 Radiologic Exam Hip Unilateral With Pelvis 2-3 Views Completed 03/10/2019 74748 Eye Exam Est Patient Comprehensive Completed 01/06/2019 82131 Eye Exam Est Patient Comprehensive Completed 12/20/2018 11200 Asp./Injection major joint Completed 02/05/2017 82049193 Mammogram Completed 10/17/2014 [id number] Mammogram Completed 04/17/2014 [id number] Mammogram Completed 05/03/2013 28601665 Mammogram Completed 08/10/2008 141149734 Bone Mineral Density Test Completed 08/10/2008 52551870 Mammogram Completed Medical Devices Description No Information Available Encounters Type Date Location Provider Dx Diagnosis Office Visit 03/30/2019 Orthopaedic Office Ruben Schreiber MD M17.11 Unilateral primary 1:15p osteoarthritis, right knee M25.751 Osteophyte, right hip Office Visit 02/24/2019 4:00p Surgical Office Ludmila Smith Z12.31 Encntr screen [place] mammogram for malignant neoplasm of breast Office Visit 12/20/2018 2:30p Orthopaedic Office Ruben Schreiber, M25.561 Pain in right MD knee M17.11 Unilateral primary osteoarthritis, right knee Assessments Date Code Description Provider 04/25/2019 H04.123 Dry eye syndrome of bilateral lacrimal glands Sarabjit Platt MD 04/25/2019 Z96.1 Presence of intraocular lens Sarabjit Paltt MD 04/25/2019 R51 Headache Sarabjit Platt MD 04/25/2019 H43.813 Vitreous degeneration, bilateral Sarabjit Platt MD 03/30/2019 M17.11 Unilateral primary osteoarthritis, right knee Ruben Schreiber MD 03/30/2019 M25.751 Osteophyte, right hip Ruben Schreiber MD 03/10/2019 R51 Headache Sarabjit Platt MD 03/10/2019 Z96.1 Presence of intraocular lens Sarabjit Platt MD 02/24/2019 Z12.31 Encounter for screening mammogram for malignant Ludmila Smith [place] neoplasm of breast 01/06/2019 R51 Headache Sarabjit Platt MD 12/20/2018 M25.561 Pain in right knee Ruben Schreiber MD 12/20/2018 M17.11 Unilateral primary osteoarthritis, right knee Ruben Schreiber MD Plan of Treatment Future Appointment(s):04/26/2020 10:45 am - Sarabjit Platt MD at [email or web address]/ 18/2019 - Ludmila Smith PAZ12.31 Encounter for screening mammogram for malignant neoplasm of breast Functional Status Functional Condition Comment Date Status Glasses Active Independent with all ADL's Active Mental Status Description No Information Available Referrals Description No Information Available
--- OUTSIDE RECORDS SUMMARY | 2019-05-20 20:32 | XMS REPORT | Continuity of Care Document ---
:1955 External Reference #:[id number] Author Name Ruben Schreiber MD Address [address] [place] [address] Care Team Providers Name Role Phone Jyotsna Burch MD - Family Care Team Information Public Health Training Assistant [phone] Medicine Tato Holloway MD - Surgery Care Team Information Public Health Training Assistant Problems Active Problems Provider Date Breast lump Elmer Dupont MD Onset: 05/01/2014 Knee pain Paul Santos M.D. Onset: 09/25/2015 Old tear of posterior horn of medial Paul Santos M.D. Onset: 09/25/2015 meniscus Enthesopathy of knee Paul Santos M.D. Onset: 10/03/2015 Localized, primary osteoarthritis Paul Santos M.D. Onset: 02/07/2016 Chondromalacia Paul Santos M.D. Onset: 02/26/2017 Complex tear of lateral meniscusTom Frank, M.D. Onset: 02/26/2017 current injury, right knee, subsequent encounter Synovial cyst of popliteal space Paul Santos M.D. Onset: 06/03/2017 Arthralgia of the ankle and/or foot Paul Santos M.D. Onset: 12/08/2017 Screening mammography Tee Quiroz, Onset: 02/17/2018 [facility] Hyperlipidemia Mikey Saleem M.D., Onset: 09/24/2018 [facility] Preoperative cardiovascular Mikey Saleem M.D., Onset: 09/24/2018 examination FAC Electrocardiogram abnormal Mikey Saleem M.D., Onset: 09/24/2018 [facility] Social History Type Date Description Comments Sex Unknown Tobacco Use Start: Unknown Light tobacco smoker (10 or fewer cigarettes/day) ETOH Use Denies alcohol use Recreational Drug Use Denies Drug Use Tobacco Use Start: Unknown Light tobacco smoker (10 or fewer cigarettes/day) Smoking Status Reviewed: 03/30/19 Light tobacco smoker (10 or fewer cigarettes/day) [...] 09/24/2018 40mg Mikey Mcallister M.D., Capsules [facility] Tylenol 8 Hour 1 tab by mouth [...] Amitriptyline HCL 1 tablet 1 hours Unknown 25mg prior to bedtime Tablets Cetirizine HCL 1 [...] kg/m2 BSA (Body Surface Area) 1.99 m2 [place] body weight in kilograms 52 kg O2 % BldC Oximetry 96 % 02/24/2019 3:50pm BP Systolic 104 mmHg BP Diastolic 76 mmHg Heart Rate 105 /min Height 64.5 inches 5'4.50" Weight 221.00 lb BMI (Body Mass Index) 37.3 kg/m2 BSA (Body Surface Area) 2.05 m2 [place] body weight in kilograms 56 kg O2 % BldC Oximetry 97 % Results Test Date Facility Test Result H/L Range Note Xray 03/30/2019 [facility] RMP, Knee, RT, Ap, < pending> [address] [facility] ([address] [place] [id number] view) [phone] RMP, Hip, RT, Ap & Lateral Including Pelvis <pending> Procedures Date Code Description Status 03/30/2019 76451 Radiology, Knee 3 Views Completed 03/30/2019 66438 Radiologic Exam Hip Unilateral With Pelvis 2-3 Views Completed 03/10/2019 36146 Eye Exam Est Patient Comprehensive Completed 01/06/2019 58856 Eye Exam Est Patient Comprehensive Completed 12/20/2018 86551 Asp./Injection major joint Completed 02/05/2017 74951198 Mammogram Completed 10/17/2014 16142875 Mammogram Completed 04/17/2014 [id number] Mammogram Completed 05/03/2013 92587922 Mammogram Completed 08/10/2008 632875116 Bone Mineral Density Test Completed 08/10/2008 65864734 Mammogram Completed Medical Devices Description No Information Available Encounters Type Date Location Provider Dx Diagnosis Office Visit 02/24/2019 Surgical Office Ludmila Smith Z12.31 Encntr screen 4:00p [place] mammogram for malignant neoplasm of breast Office Visit 12/20/2018 Orthopaedic Office Ruben Schreiber MD M25.561 Pain in right 2:30p knee M17.11 Unilateral primary osteoarthritis, right knee Assessments Date Code Description Provider 03/30/2019 M17.11 Unilateral primary osteoarthritis, right knee Ruben Schreiber MD 03/10/2019 R51 Headache Sarabjit Platt MD 03/10/2019 Z96.1 Presence of intraocular lens Sarabjit Platt MD 02/24/2019 Z12.31 Encounter for screening mammogram for malignant Ludmila Smith [place] neoplasm of breast 01/06/2019 R51 Headache Sarabjit Platt MD 12/20/2018 M25.561 Pain in right knee Ruben Schreiber MD 12/20/2018 M17.11 Unilateral primary osteoarthritis, right knee Ruben Schreiber MD Plan of Treatment Future Appointment(s):04/25/2019 9:30 am - Sarabjit Platt MD at [email or web address]/ 18/2019 - Ludmila Smith PAZ12.31 Encounter for screening mammogram for malignant neoplasm of breast Functional Status Functional Condition Comment Date Status Glasses Active Independent with all ADL's Active Mental Status Description No Information Available Referrals Description No Information Available
[2019-05-20 20:41] VITALS: BP 128/78
--- NOTE | 2019-05-20 21:20 | UC ---
Throat Pain/Nasal Basilio HPI - HPI Summary HPI Summary: 63-year-old female who has had an earache for most of the week and today had a sore throat. She denies any fever or chills. - History of Current Complaint Chief Complaint: UCRespiratory Stated Complaint: SORE THROAT, EAR PAIN Time Seen by Provider: 05/20/19 20:27 Hx Obtained From: Patient Hx Last Menstrual Period: n/a ?: No Onset/Duration: Gradual Onset Severity: Mild Pain Intensity: 4 Cough: None Associated Signs & Symptoms: Positive: Negative - Allergies/Home Medications Allergies/Adverse Reactions: Allergies Allergy/AdvReac Type Severity Reaction Status Date / Time amoxicillin [From Augmentin] Allergy Severe See Comment Verified 05/20/19 20:42 clavulanic acid Allergy Severe See Comment Verified 05/20/19 20:42 [From Augmentin] simvastatin AdvReac Severe felt "odd" Verified 05/20/19 20:42 sulfasalazine AdvReac Severe Rash Verified 05/20/19 20:42 Home Medications: Home Medications C-Pap 1 dose INH QPM 05/20/19 [History Confirmed 05/20/19] Fexofenadine (NF) [Kathrine (NF)] 60 mg PO QPM 05/20/19 [History Confirmed ] PMH/Surg Hx/FS Hx/Imm Hx Previously Healthy: Yes Respiratory History: COPD - Surgical History Surgical History: Yes Surgery Procedure, Year, and Place: L3-4,L4-5 FUSION RODS SCREWS AND CAGE 2006 [place]. RT CARPAL TUNNEL RELEASE 03/2007 [place]. LEFT CARPAL TUNNEL RELEASE 04/2007 [place]. APPENDECTOMY 01/2010 [place]. Back stimulator placement 2015. bilateral cataract; Bariatric 11/16/18 [facility] - Family History Known Family History: Positive: Hypertension, Diabetes - Social History Alcohol Use: None Substance Use Type: None Substance Use Comment - Amount & Last Used: uses tramadol Smoking Status (MU): Light Every Day Tobacco Smoker Type: Cigarettes Amount Used/How Often: 1 PPD When Did the Patient Quit Smoking/Using Tobacco: 09/12/18 Household Exposure Type: Cigarettes - Immunization History Most Recent Influenza Vaccination: 2018 Most Recent Pneumonia Vaccination: none Review of Systems All Other Systems Reviewed And Are Negative: Yes ENT: Positive: Sore Throat, Ear Ache Is Patient Immunocompromised?: No Physical Exam Triage Information Reviewed: Yes Appearance: Well-Appearing, No Pain Distress, Well-Nourished Vital Signs: Initial Vital Signs Temp 98 F 05/20/19 20:32 Pulse 90 05/20/19 20:32 Resp 18 05/20/19 20:32 BP 128/78 05/20/19 20:32 Pulse Ox 98 05/20/19 20:32 Vital Signs Reviewed: Yes Eyes: Positive: Conjunctiva Clear ENT: Positive: Hearing grossly normal, Pharyngeal erythema - Very mild pharyngeal erythema., TMs normal, Uvula midline Neck: Positive: Supple, Nontender, No Lymphadenopathy Respiratory: Positive: Lungs clear, Normal breath sounds, No respiratory distress, No accessory muscle use Cardiovascular: Positive: RRR, No Murmur, Pulses Normal, Brisk Capillary Refill Musculoskeletal Exam: Normal Neurological Exam: Normal Psychological Exam: Normal Skin Exam: Normal Throat Pain/Nasal Course/Dx - Course Course Of Treatment: Rapid strep test was negative. Patient to increase fluids, warm saltwater gargles, throat lozenges and recheck as needed for any worsening symptoms. - Differential Dx/Diagnosis Provider Diagnosis: Otalgia of both ears, Pharyngitis Discharge ED - Sign-Out/Discharge Documenting (check all that apply): Patient Departure All imaging exams completed and their final reports reviewed: No Studies - Discharge Plan Condition: Good Disposition: HOME Patient Education Materials: Earache (ED) Referrals: Jyotsna Burch MD [Primary Care Provider] - Additional Instructions: Increase fluids, warm saltwater gargles, throat lozenges for comfort. May take Tylenol every 4 hours for pain or fever and alternate with Motrin every 8 hours as needed. Definite follow-up with your primary care provider if no improvement in 3 or 4 days. - Billing Disposition and Condition Condition: GOOD Disposition: Home
== END 2019-05-20 21:18 | disposition home or self-care (01) ==
LOC: UCCORT 20:24
DX: J02.9 Acute pharyngitis, unspecified (principal); H92.03 Otalgia, bilateral; J44.9 Chronic obstructive pulmonary disease, unspecified; F17.210 Nicotine dependence, cigarettes, uncomplicated; Z88.0 Allergy status to penicillin; Z88.8 Allergy status to other drugs, medicaments and biological substances
CPT/HCPCS: 87651; 99211; G0463

== ENCOUNTER 2019-06-16 16:33 | Emergency (ER) | payer MEDICARE ==
[2019-06-16 18:24] LABS: ABS Eosinophils 0.7 10^3/ul (0-0.6); ABS Lymphocytes 1.9 10^3/ul (1.0-4.8); ABS Monocytes 0.7 10^3/ul (0-0.8); ABS Neutrophils 4.2 10^3/ul (1.5-7.7); Eosinophil % 8.8 %; Hematocrit 38 % (35-47); Hemoglobin 12.4 g/dL (12.0-16.0); Lymphocyte % 25.7 %; Mean Corpuscular HGB Conc 33 g/dL (31-36); Mean Corpuscular Hemoglobin 30 pg (27-31); Mean Corpuscular Volume 91 fL (80-97); Mean Platelet Volume 8.6 fL (7.4-10.4); Nucleated Red Blood Cells % 0.2; Platelet Count 271 10^3/uL (150-450); Red Blood Count 4.14 10^6 /uL (3.70-4.87); Red Cell Distribution Width 14 % (10-15); White Blood Count 7.5 10^3/uL (3.5-10.8)
[2019-06-16 18:32] LABS: INR 1.06 (0.82-1.09)
[2019-06-16 18:39] LABS: Albumin 3.7 g/dL (3.2-5.2); Albumin/Globulin Ratio 1.3 (1-3); BUN/Creatinine Ratio 30.2 (8-20); Calcium 9.1 mg/dL (8.6-10.3); EGFR African American 140.5 (>60); EGFR Non-African American 116.1 (>60); Globulin 2.8 g/dL (2-4); Potassium 3.9 mmol/L (3.5-5.0); Total Bilirubin 0.4 mg/dL (0.2-1.0); Total Protein 6.5 g/dL (6.4-8.9)
[2019-06-16] MEDS ORDERED: Iohexol 300* (CONTRAST) 10 ML SDV IV ONE (20:37)
--- NOTE | 2019-06-16 21:19 | ED ---
Adult Trauma - HPI Summary HPI Summary: Patient complains of left chest wall pain under her breast, pain with inhalation , right hip and right knee pain status post mechanical fall 3 days ago. Patient walks with walker at baseline, fell down 2 stairs. Patient states she laid there for about 10 hours that she was unable to get up at that time. A neighbor came along 10 hours later assisted her up and she was able to ambulate into the house with her walker. Patient denies known head injury, LOC, N/V, vision change, headache. Denies any known wound or bleeding. Patient states she has been finding new bruises every day since fall. No anti-coag. History of chronic back pain. - History of Current Complaint Chief Complaint: EDChestWallPain Stated Complaint: FALL INJ/CHEST AND ARM PAIN PER PT Time Seen by Provider: 06/16/19 18:48 Hx Obtained From: Patient, Family/Tool Grinder Hx Last Menstrual Period: n/a Mechanism of Injury: Fall Ambulatory at the Scene: Yes Loss of Consciousness: no loss of consciousness Onset of Pain: Immediate Onset Severity: Moderate Current Severity: Severe Pain Intensity: 9 Pain Scale Used: 0-10 Numeric Location: Chest, Back, Extremities Character: Aching Aggravating Factor(s): Movement, Palpation Alleviating Factor(s): Nothing Associated Signs & Symptoms: Positive: Chest Pain, Painful Respirations - Additional Pertinent History Primary Care Physician: [id number] - Allergy/Home Medications Allergies/Adverse Reactions: Allergies Allergy/AdvReac Type Severity Reaction Status Date / Time amoxicillin [From Augmentin] Allergy Severe See Comment Verified 06/16/19 16:47 clavulanic acid Allergy Severe See Comment Verified 06/16/19 16:47 [From Augmentin] simvastatin AdvReac Severe felt "odd" Verified 06/16/19 16:47 sulfasalazine AdvReac Severe Rash Verified 06/16/19 16:47 Home Medications: Home Medications Aspirin EC TAB* [Ecotrin EC Low Dose 81 MG*] 81 mg PO DAILY 06/16/19 [History Confirmed 06/16/19] Baclofen TAB* [Lioresal TAB*] 10 mg PO TID PRN 06/16/19 [History Confirmed 06/16] Docusate CAP* [Colace Cap*] 200 - 400 mg PO BEDTIME PRN 06/16/19 [History Confirmed 06/16/19] Escitalopram * [Lexapro *] 20 mg PO QAM 06/16/19 [History Confirmed 06/16/19] Omeprazole (Nf) [Prilosec (NF)] 40 mg PO BID 06/16/19 [History Confirmed ] Pravastatin (NF) [Pravachol (NF)] 40 mg PO BEDTIME 06/16/19 [History Confirmed 06/16/19] PMH/Surg Hx/FS Hx/Imm Hx Endocrine/Hematology History: Reports: Hx Anemia - years ago-post surgery Denies: Hx Diabetes, Hx Thyroid Disease Cardiovascular History: Denies: Hx Angina, Hx Hypertension, Hx Peripheral Vascular Disease Respiratory History: Reports: Hx Chronic Obstructive Pulmonary Disease (COPD), Hx Pulmonary Embolism - 2003 ( after a road trip), Hx Sleep Apnea GI History: Reports: Hx Gastroesophageal Reflux Disease - PT. STATES CONTROLLED WITH MEDS, Other GI Disorders - CONSTIPATION History: Denies: Hx Renal Disease Musculoskeletal History: Reports: Hx Arthritis - OSTEO, Hx Bursitis, Hx Tendonitis, Other Musculoskeletal History - SPONDYLOPATHY Sensory History: Reports: Hx Cataracts - BEGINNING STAGES NO SURGERY NEEDED YET , Hx Contacts or Glasses - GLASSES Denies: Hx Hearing Aid Opthamlomology History: Reports: Hx Cataracts - BEGINNING STAGES NO SURGERY NEEDED YET, Hx Contacts or Glasses - GLASSES Neurological History: Reports: Hx Headaches, Hx Nerve Disease - fibromyalgia, Other Neuro Impairments/Disorders - FIBROMYALGIA Psychiatric History: Reports: Hx Anxiety, Hx Depression - Cancer History Hx Chemotherapy: No - Surgical History Surgery Procedure, Year, and Place: L3-4,L4-5 FUSION RODS SCREWS AND CAGE 2006 COU[place]. RT CARPAL TUNNEL RELEASE 03/2007 [place]. LEFT CARPAL TUNNEL RELEASE 04/2007 [place]. APPENDECTOMY 01/2010 [place]. Back stimulator placement 2015. bilateral cataract; Bariatric 11/16/18 [facility] Hx Anesthesia Reactions: No Infectious Disease History: No Infectious Disease History: Reports: Hx Shingles Denies: History Other Infectious Disease, Traveled Outside the [place] in Last 30 Days - Family History Known Family History: Positive: Hypertension, Diabetes - Social History Alcohol Use: None Substance Use Type: Reports: None Substance Use Comment - Amount & Last Used: uses tramadol Smoking Status (MU): Light Every Day Tobacco Smoker Type: Cigarettes Amount Used/How Often: 5 cigarettes/day Review of Systems Constitutional: Negative Eyes: Negative ENT: Negative Positive: Chest Pain Respiratory: Negative Gastrointestinal: Negative Genitourinary: Negative Musculoskeletal: Other Positive: Bruising Neurological: Negative Psychological: Normal All Other Systems Reviewed And Are Negative: Yes Physical Exam - Summary Physical Exam Summary: Neuro exam normal. No evidence of trauma to mouth, face, head. Full range of motion of jaw and neck. No pain with palpation of neck. No bony point tenderness with palpation of upper thoracic spine no pain with palpation of lumbar spine. Pain with palpation of left side lower ribs. No ecchymosis, erythema, deformity, swelling noted to site. No pain with palpation of abdomen. Patient moving all 4 extremities freely without any indication of pain. Normal exam of right hip and right knee. Triage Information Reviewed: Yes Vital Signs On Initial Exam: Initial Vitals Temp Pulse Resp BP Pulse Ox 99.0 F 85 18 114/68 97 06/16/19 16:45 06/16/19 16:45 06/16/19 16:45 06/16/19 16:45 06/16/19 16:45 Vital Signs Reviewed: Yes Appearance: Positive: Well-Appearing Skin: Positive: Warm Head/Face: Positive: Normal Head/Face Inspection Eyes: Positive: Normal ENT: Positive: Normal ENT inspection Dental: Negative: Dental Fracture @, Bleeding Neck: Positive: Supple Respiratory/Lung Sounds: Positive: Clear to Auscultation Cardiovascular: Positive: Normal Abdomen Description: Positive: Nontender Musculoskeletal: Positive: Normal Neurological: Positive: Normal Psychiatric: Positive: Normal AVPU Assessment: Alert - Welches Coma Scale Best Eye Response: 4 - Spontaneous Best Motor Response: 6 - Obeys Commands Best Verbal Response: 5 - Oriented Coma Scale Total: 15 Procedures - Sedation Patient Received Moderate/Deep Sedation with Procedure: No Diagnostics - Vital Signs Vital Signs Temp Pulse Resp BP Pulse Ox 06/16/19 18:12 98.1 F 81 16 97/59 97 06/16/19 16:45 99.0 F 85 18 114/68 97 - Laboratory Lab Results: Lab Results 06/16/19 06/16/19 06/16/19 Range/Units 18:12 18:12 18:12 WBC 7.5 (3.5-10.8) 10^3/uL RBC 4.14 (3.70-4.87) 10^6 /uL Hgb 12.4 (12.0-16.0) g/dL Hct 38 (35-47) % MCV 91 (80-97) fL MCH 30 (27-31) pg MCHC 33 (31-36) g/dL RDW 14 (10-15) % Plt Count 271 (150-450) 10^3/uL MPV 8.6 (7.4-10.4) fL Neut % (Auto) 55.6 % Lymph % (Auto) 25.7 % [place] % (Auto) 9.4 % Eos % (Auto) 8.8 % Baso % (Auto) 0.5 % Absolute Neuts (auto) 4.2 (1.5-7.7) 10^3/ul Absolute Lymphs (auto) 1.9 (1.0-4.8) 10^3/ul Absolute Monos (auto) 0.7 (0-0.8) 10^3/ul Absolute Eos (auto) 0.7 H (0-0.6) 10^3/ul Absolute Basos (auto) 0.0 (0-0.2) 10^3/ul Absolute Nucleated RBC 0.0 10^3/ul Nucleated RBC % 0.2 INR (Anticoag Therapy) 1.06 (0.82-1.09) Sodium 139 (135-145) mmol/L Potassium 3.9 (3.5-5.0) mmol/L Chloride 104 (101-111) mmol/L Carbon Dioxide 28 (22-32) mmol/L Anion Gap 7 (2-11) mmol/L BUN 16 (6-24) mg/dL Creatinine 0.53 (0.51-0.95) mg/dL Est GFR ( Amer) 140.5 (>60) Est GFR (Non-Af Amer) 116.1 (>60) BUN/Creatinine Ratio 30.2 H (8-20) Glucose 89 (70-100) mg/dL Calcium 9.1 (8.6-10.3) mg/dL Total Bilirubin 0.40 (0.2-1.0) mg/dL AST 28 (13-39) U/L ALT 24 (7-52) U/L Alkaline Phosphatase 113 H (34-104) U/L Total Creatine Kinase 548 H (10-223) U/L Troponin I 0.00 (<0.04) ng/mL Total Protein 6.5 (6.4-8.9) g/dL Albumin 3.7 (3.2-5.2) g/dL Globulin 2.8 (2-4) g/dL Albumin/Globulin Ratio 1.3 (1-3) Result Diagrams: 06/16/19 18:12 06/16/19 18:12 Lab Statement: Any lab studies that have been ordered have been reviewed, and results considered in the medical decision making process. Adult Trauma Course/Dx - Course Course Of Treatment: Patient complains of left chest wall pain under her breast , pain with inhalation, right hip and right knee pain status post fall 3 days ago. Patient walks with walker at baseline, fell down 2 stairs. Patient states she laid there for about 10 hours that she was unable to get up at that time. A neighbor came along 10 hours later assisted her up and she was able to ambulate into the house with her walker. Patient denies known head injury, LOC , N/V, vision change, headache. Denies any known wound or bleeding. Patient states she has been finding new bruises every day since fall. No anti-coag. History of chronic back pain. Vital signs within normal limits. CPK 538. Labs otherwise unremarkable. Rib and chest x-ray non-definitive for rib fracture. CT chest abdomen pelvis positive for fractures and right wrist 56 and 8 laterally which could be subacute to chronic. Age indeterminate left fourth rib fracture. Subacute to chronic left ninth rib fracture. EKG sinus rhythm with heart rate of 83, normal axis. No prior EKG on file. X-ray right knee negative. - Diagnoses Provider Diagnoses: Fall, Rib fracture Discharge ED - Sign-Out/Discharge Documenting (check all that apply): Patient Departure - Discharge Plan Condition: Stable Disposition: HOME Patient Education Materials: Rib Fracture (ED) Referrals: Shawn Thomas MD [Primary Care Provider] - Additional Instructions: Continue taking your baclofen for rib pain. Take occasional deep breaths. Follow-up with primary care. Return to the ED for any new or worsening symptoms. - Billing Disposition and Condition Condition: STABLE Disposition: Home - Attestation Statements Provider Attestation: I was asked to review CXR for patient after fall, possible L sided rib fr, recommended CT. - Perry Moyer MD
[2019-06-16] MEDS ORDERED: NS 0.9% 1000 ML** 1,000 ML IV ONE (21:23)
[2019-06-16 22:00] LABS: Urine Appearance Clear; Urine Bilirubin Negative (Negative); Urine Blood Negative (Negative); Urine Color Amber; Urine Glucose Negative (Negative); Urine Ketones 1+ (Negative); Urine Nitrite Negative (Negative); Urine Protein Negative (Negative); Urine Specific Gravity > 1.060 (1.010-1.030); Urine Urobilinogen Negative (Negative)
[2019-06-16 23:55] VITALS: BP 111/70
--- NOTE | 2019-06-17 10:11 | ED ---
Imaging and Labs Follow Up Follow Up Type: Imaging Imaging Result: Xrays show rib fracture and joint effusion. Patient Communication/Plan: Pt. treated appropriately in ED. NO change in tx needed at this time. Provider Diagnoses: Fall, Rib fracture
== END 2019-06-16 23:53 | disposition home or self-care (01) ==
LOC: ED 16:33
DX: S22.43XA Multiple fractures of ribs, bilateral, initial encounter for closed fracture (principal); W10.9XXA Fall (on) (from) unspecified stairs and steps, initial encounter; Y92.009 Unspecified place in unspecified non-institutional (private) residence as the place of occurrence of the external cause; J44.9 Chronic obstructive pulmonary disease, unspecified; K21.9 Gastro-esophageal reflux disease without esophagitis; F41.9 Anxiety disorder, unspecified; F32.9 Major depressive disorder, single episode, unspecified; F17.210 Nicotine dependence, cigarettes, uncomplicated; Z79.82 Long term (current) use of aspirin; Z79.899 Other long term (current) drug therapy; Z86.711 Personal history of pulmonary embolism; Z90.89 Acquired absence of other organs; Z98.84 Bariatric surgery status; Z88.1 Allergy status to other antibiotic agents; Z88.0 Allergy status to penicillin; Z88.2 Allergy status to sulfonamides; Z88.8 Allergy status to other drugs, medicaments and biological substances; K57.30 Diverticulosis of large intestine without perforation or abscess without bleeding
CPT/HCPCS: 36415; 71260; 74177; 80053; 81003; 82550; 84484; 85025; 85610; 93005; 96360; 99283; Q9967

== ENCOUNTER 2022-06-25 09:15 | Inpatient (IN) ==
[~2022-06-25 09:15] MED LIST changes: +Buffered Lidocaine 1% SYRIN 1 ml INTRADERM ONE; -Buffered Lidocaine 1% SYRIN* 1 ML/SYRINGE INTRADERM ONE; +HYDROcodone/ACETAMIN 5/325 mg TAB PO PRN; +Lactated Ringers 1000 ml BAG 1,000 ML IV SCH; +Metoclopramide 5 MG/ML VIAL (10 mg) IV PRN; +Naloxone 0.4 mg VIAL 0.4 mg/ml 1 ml VIAL IV PRN; +Ondansetron 4 mg VIAL 2 MG/ML 2 ml VIAL IV PRN; +fentaNYL 100 mcg/2 ml 50 MCG/ML VIAL IV PRN
[2022-06-25] MEDS ORDERED: Rocuronium 50 mg VIAL 10 mg/ml 5 ml VIAL (50 mg) ONE ×3 (09:39→18:12)
[2022-06-25] MEDS ORDERED: Lidocaine 2% PF 5 ML VIAL ONE (09:39)
[2022-06-25] MEDS ORDERED: fentaNYL 100 mcg/2 ml 50 MCG/ML VIAL ONE ×2 (09:39→19:08)
[2022-06-25] MEDS ORDERED: Propofol 10 MG/ML 20 ML BTL ONE (09:39)
[2022-06-25] MEDS ORDERED: Midazolam 2 mg/2 ml VIAL 1 mg/ml 2 ml VIAL (2 mg) ONE (09:39)
[2022-06-25] MEDS ORDERED: Lidocaine 1% w EPI 1:200,000 SDV 30 ML VIAL ONE (10:31)
[2022-06-25] MEDS ORDERED: Bupivacaine 0.5% SDV PF 30ML VIAL ONE (10:31)
[2022-06-25] MEDS ORDERED: Chlorhexidine MOUTHWASH 0.12% 15 ML UDC ONE (10:31)
[2022-06-25] MEDS ORDERED: Heparin 5000 UNITS/ML 1 mL VIAL ONE ×2 (10:31→22:38)
[2022-06-25] MEDS ORDERED: Scopolamine 1 mg/72hr PATCH ONE (10:32)
[2022-06-25] MEDS ORDERED: ceFAZolin 2 GM in NS PREMIX 2 GM/100 ML BAG IVPB ONE (10:33)
[2022-06-25] MEDS ORDERED: Ondansetron ODT 4 mg TAB 4 MG TAB ONE (10:33)
[2022-06-25] MEDS ORDERED: HYDROmorphone 0.5 MG/0.5 ML SYRINGE ONE ×3 (12:10→15:01)
[2022-06-25] MEDS ORDERED: ceFAZolin VIAL VIAL ONE ×2 (15:04→15:05)
[2022-06-25] MEDS ORDERED: Phenylephrine 40 mcg/mL 10mL (400mcg) SYRINGE ONE (15:55)
[2022-06-25] MEDS ORDERED: Iohexol 180 (CONTRAST) 10 ML SDV IV ONE (18:26)
[2022-06-25] MEDS ORDERED: Acetaminophen IV 1 GM/100ML 1,000 MG/100 ML BAG IV ONE (19:07)
[2022-06-25] MEDS ORDERED: Ondansetron 4 mg VIAL 2 MG/ML 2 ml VIAL ONE (19:29)
[2022-06-25] MEDS ORDERED: Naloxone 4 mg VIAL 0.4 MG/ML 10 ml VIAL (4 mg) ONE (21:51)
[2022-06-25] MEDS ORDERED: Naloxone 0.4 mg VIAL 0.4 mg/ml 1 ml VIAL ONE (21:51)
[2022-06-26] MEDS ORDERED: Lactated Ringers 1000 ml BAG 1,000 ML IV SCH (03:00)
[2022-06-26] MEDS ORDERED: Morphine ORAL.SOLN 10 mg 2 mg/ml UDC 5 ml (10 mg) PO PRN (04:08)
[2022-06-26] MEDS ORDERED: oxyCODONE/Acetamin 5/325 mg TAB PO PRN (04:13)
[2022-06-26] MEDS: Acetaminophen IV 1 GM/100ML 1,000 MG/100 ML BAG IV PRN ×2 (04:16→13:30)
[2022-06-26 05:41] LABS: Hematocrit 34 % (35-47); Hemoglobin 11.2 g/dL (12.0-16.0); Mean Corpuscular HGB Conc 33 g/dL (31-36); Mean Corpuscular Hemoglobin 30 pg (27-31); Mean Corpuscular Volume 92 fL (80-97); Mean Platelet Volume 8.2 fL (7.4-10.4); Platelet Count 207 10^3/uL (150-450); Red Blood Count 3.71 10^6 /uL (3.70-4.87); Red Cell Distribution Width 14 % (10-15); White Blood Count 12.7 10^3/uL (3.5-10.8)
[2022-06-26 06:31] LABS: Calcium 8.1 mg/dL (8.6-10.3); Magnesium 1.8 mg/dL (1.9-2.7); Phosphorus 3.1 mg/dL (2.5-5.0); Potassium 4.3 mmol/L (3.5-5.0); eGFR CKD-EPI 95.4 (>60)
[2022-06-26] MEDS ORDERED: Magnesium Sulfate IV 1GM/100ML 1 GM/100 ML BAG IV ONE (06:49)
[2022-06-26] MEDS ORDERED: fentaNYL Patch Check Q Shift NOTE FOLLOW UP SCH (07:00)
[2022-06-26] MEDS: Heparin 5000 UNITS/ML 1 mL VIAL SUBCUT SCH ×2 (08:14→13:21)
[2022-06-26] MEDS ORDERED: Triamcinolone 0.025% OINT 15 GM TUBE TOPICAL SCH (09:00)
[2022-06-26] MEDS ORDERED: Fluticasone NASAL SPRAY 50MCG 16 gm SPRAY BTL BOTH NARES SCH (09:00)
[2022-06-26] MEDS ORDERED: Multivitamins/Minerals TAB PO SCH (09:00)
[2022-06-26] MEDS ORDERED: fentaNYL PATCH 25 MCG/HR 1 PATCH TRANSDERM SCH (09:00)
[2022-06-26] MEDS ORDERED: Calcium Carb (TUMS) 500 mg CHEW TAB PO SCH ×2 (09:00)
[2022-06-26] MEDS ORDERED: Psyllium PAK PO SCH (09:00)
[2022-06-26] MEDS: Dextran 70/Hypromellose Tears Eye Drops 15 ml BTL (for Artificials Tears) BOTH EYES SCH ×3 (09:39→17:11)
[2022-06-26] MEDS: Morphine ORAL.SOLN 10 mg 2 mg/ml UDC 5 ml (10 mg) PO PRN ×2 (10:47→13:20)
[2022-06-26 17:24] VITALS: BP 93/59
[2022-06-26] MEDS ORDERED: Aspirin EC 81 mg TAB.EC (enteric coated) PO SCH (21:00)
[2022-06-27] MEDS ORDERED: FERROUS SULFATE 27 MG PO SCH (09:00)
[2022-07-01] MEDS ORDERED: METHOTREXATE SUBCUT SCH (09:00)
== END 2022-06-26 18:50 | disposition home or self-care (01) | DRG 983 ==
LOC: OR 09:15 → ICU 06-26 00:17
PROVIDERS: ADMIT Internal Medicine; ATTEND Obstetrics & Gynecology